=== PATIENT | male | born 1955 | race Caucasian/White ===

== ENCOUNTER → 2016-08-16 12:04 | Outpatient (CLI) | payer MEDICARE ==
[2011-11-28 08:53] VITALS: BMI 22.3
[~2016-08-16 12:04] MED LIST: ADDERALL 20 MG20 M1 PO; CORDARONE200 MG PO; ELIQUIS2.5 MG PO; HYDROCODONE-APA1 TAB PO; PERCOCET 10/3251 TA1 PO; VALIUM5 MG PO; XANAX0.5 MG PO
[2016-09-02 14:42] VITALS: BMI 26.9
== END | disposition home or self-care (01) ==
LOC: D.RAD 09:45
DX: M25.552 Pain in left hip (principal)

== ENCOUNTER → 2016-08-21 17:31 | Outpatient (CLI) | payer MEDICARE ==
[2011-11-28 08:53] VITALS: BMI 22.3
[2016-09-02 14:42] VITALS: BMI 26.9
== END | disposition home or self-care (01) ==
LOC: D.LABREF 17:31
DX: M16.12 Unilateral primary osteoarthritis, left hip (principal); Z11.8 Encounter for screening for other infectious and parasitic diseases

== ENCOUNTER 2016-08-29 09:00 | Inpatient (IN) | payer MEDICARE ==
[~2016-08-29] VITALS: Ht 185.4 cm; Wt 92.7 kg
[~2016-08-29 09:00] MED LIST changes: -ADDERALL 20 MG20 M1 PO; -ELIQUIS2.5 MG PO; -PERCOCET 10/3251 TA1 PO; -XANAX0.5 MG PO
[2016-08-29 09:21] LABS: HEMATOCRIT 37.5 % (42.0-54.0); HEMOGLOBIN 12.1 g/dL (13.5-17.5); LYMPHOCYTES 45.2 % (15-50); MCH 28.1 pg (26.0-34.0); MCHC 32.3 g/dL (31.0-37.0); MCV 87.2 fL (80.0-100.0); NEUTROPHILS 33.5 % (40-80); RDW 14.6 % (11.5-14.5); WBC 6.7 10x3/uL (4.8-10.8)
[2016-08-29 09:23] LABS: PLATELET COUNT 380 10x3/uL (130-400)
[2016-08-29 09:36] LABS: CALC OSMOLALITY 277 mosm/kg (275-300); CALCIUM 9.1 mg/dL (8.5-10.1); CARBON DIOXIDE 29.6 mmol/L (21.0-32.0); CHLORIDE - SERUM 99 mmol/L (98-107); CREATININE - SERUM 0.9 mg/dL (0.6-1.3); GLUCOSE 97 mg/dL (74-106); POTASSIUM - SERUM 4.2 mmol/L (3.5-5.1); SODIUM 138 mmol/L (136-145); UREA NITROGEN 19 mg/dL (7-18); eGFR NON AFRICAN AMERICAN > 90 mL/min (90-120)
[2016-08-29 09:52] LABS: APTT 37.7 SECONDS (22.8-39.4); INR 0.96 (0.85-1.17); PROTIME 12.6 SECONDS (11.6-15.0)
[2016-08-29 10:25] LABS: APPEARANCE HAZY (CLEAR); BILIRUBIN NEGATIVE (NEGATIVE); COLOR YELLOW (YELLOW); GLUCOSE NEGATIVE (NEGATIVE); KETONE NEGATIVE (NEGATIVE); LEUKOCYTE ESTERASE TRACE (NEGATIVE); NITRITE NEGATIVE (NEGATIVE); PROTEIN NEGATIVE (NEGATIVE); SPECIFIC GRAVITY 1.015 (1.005-1.020); UROBILINOGEN NORMAL (NORMAL)
[2016-08-29 10:26] LABS: RED CELLS - URINE RARE /hpf (0-5); WHITE CELLS - URINE 0-5 /hpf (0-5)
[2016-08-29 10:27] LABS: BACTERIA FEW /hpf (NONE SEEN); EPITHELIAL CELLS 0-5 /hpf (0-5); MUCUS >1+ /lpf (NONE SEEN); SPERMATOZOA PRESENT /hpf (NONE SEEN)
[2016-08-29] MEDS ORDERED: XANAX0.5 MG PO (13:47)
[2016-08-29] MEDS ORDERED: ADDERALL 20 MG20 M1 PO (13:49)
[2016-09-02] VITALS (9 sets, daily range): BP systolic 123–161; BP diastolic 66–91; Ht 185.4 cm; Wt 92.7 kg
--- NOTE | 2016-09-02 09:13 | NUR ---
0905 WARMING GOWN ON AND ATTACHED TO WARMER
--- NOTE | 2016-09-02 12:34 | NUR ---
WASHED LEFT HIP WITH HIBICLENS AND ALCOHOL PER WILLOW HENRIQUEZ RN PRIOR TO CHLORAPREP
--- NOTE | 2016-09-02 14:15 | NUR ---
PATIENT IS MOANING, VERBALIZING PAIN. HOLDING HIS BREATH. CLINCHING HIS FISTS. ADMINISTERED PERCOCET. WILL CONTINUE TO MONITOR.
--- NOTE | 2016-09-02 15:18 | NUR ---
PT RESTING QUIETLY WITH EYES CLOSED.
--- NOTE | 2016-09-02 17:08 | OP ---
PATIENT NAME: ISMAEL BRADFORD MEDICAL RECORD: [id number] :55 LOCATION:[id number] ADMISSION DATE:09/02/16 SURGEON: KANU MARQUEZ MD DATE OF OPERATION: 09/02/2016 PREOPERATIVE DIAGNOSIS: Degenerative arthritis of the left hip. POSTOPERATIVE DIAGNOSIS: Degenerative arthritis of the left hip. PROCEDURE: Left total hip arthroplasty. SURGEON: Kanu Marquez MD. ANESTHESIA: General. INTRAOPERATIVE COMPLICATIONS: None. SUMMARY OF PATHOLOGIC FINDINGS: The patient had end-stage osteoarthritis of the hip consistent with the preoperative diagnosis. IMPLANTS USED: Arsh Accolade II with a Tritanium cup size 4 stem, 36 standard head, size 54 shell alpha code E, 36 mm polyethylene, size 4 Accolade II TMZF coated femoral stem. ESTIMATED BLOOD LOSS: 300 cc. OPERATIVE SUMMARY IN DETAIL: After obtaining the appropriate preoperative orthopedic surgical consents as well as anesthetic consultation, evaluation and clearance, the patient was brought to the operating room and placed on the operating table in supine position. After general laryngeal mask was administered, he was placed in a right lateral decubitus position. All pressure points were well padded to include down leg peroneal pad as well as axillary roll. He was held firmly to the operating table using the vacuum pack suction system. Left lower extremity and hip were then prepped and draped in a routine sterile fashion. Curvilinear incision was made, taken down to the level of the IT band, which was split in line with fibers of the IT band to reveal the gluteus medius and minimus. These were reflected anteriorly. The hip capsule was split in a T-type fashion. The hip was dislocated and femoral neck cut was made. Serial and sequential reaming was done for a size 54 cluster hole cup, which was put into place with good fit and fill. Polyethylene shell was tamped into place at this point and checked with Jodie. The proximal femur was then exposed. A serial and sequential reaming and broaching were done for a size 4 Accolade II one 32 stem. This was put into place. Trial was undertaken with the head standard, was thought to be the best for most leg length appropriateness. The head was tamped into place on the Hoff taper. The hip was reduced. X-rays were taken that showed good position and placement of all components. The wound was copiously irrigated at this multiple points. The capsule was closed with #2 Ethibond followed by reapproximation of the gluteus medius and minimus back to the greater trochanter in a transosseous fashion. Having completed this, the IT band was closed with #5 Ethibond. This was followed by #1 Vicryl, 2-0 Vicryl and skin kristopher. Sterile dressings were applied. The patient was awakened, taken to recovery in stable condition. All final needle and sponge counts were correct. TRANSINT:[id number] Voice Confirmation ID: [id number] DOCUMENT ID: [id number] OPERATIVE REPORT [id number] ISMAEL BRADFORD MD, KANU BURTON at 1708 CC: [id number] DICTATION DATE: 09/02/16 1255 EMAIL CAMPAIGN MANAGER: 09/02/16 1342 ADM IN [facility] [address] [id number]
--- NOTE | 2016-09-02 19:00 | NUR ---
PATIENT SUPINE IN BED. HOB 30 DEGREES. PATIENT IS MOANING AND STATING THAT PAIN IS A 10/10. IV TO RIGHT WRIST PATENT WITH NO REDNESS OR SWELLING. DRESSING TO LEFT HIP CDI. B/A ON. SRX2. BED LOW. CALL LIGHT WITHIN REACH.
--- NOTE | 2016-09-02 22:20 | NUR ---
REPOSITIONED PATIENT. APPLIED FRESH ICE TO HIP. PERCOCET GIVEN FOR BREAKTHROUGH PAIN.
[2016-09-03 01:00] VITALS: BP 139/66
[2016-09-03 05:00] VITALS: BP 145/77
[2016-09-03 06:03] LABS: HEMATOCRIT 32.3 % (42.0-54.0); HEMOGLOBIN 10.3 g/dL (13.5-17.5); MCH 27.4 pg (26.0-34.0); MCHC 31.9 g/dL (31.0-37.0); MCV 85.9 fL (80.0-100.0); MEAN PLATELET VOLUME 9.1 fL (7.4-10.4); RBC 3.76 10x6/uL (4.20-6.10); RDW 14.6 % (11.5-14.5); WBC 10.9 10x3/uL (4.8-10.8)
[2016-09-03 08:18] VITALS: BP 119/59
--- NOTE | 2016-09-03 09:30 | NUR ---
PATIENT LAYING ON HIS LEFT SIDE. RESTING QUIETLY WITH EYES CLOSED. NO SIGNS OF DISTRESS NOTED. BED IN LOWEST POSITION, CALL LIGHT IN REACH. BED RAILS UP X'S 2. BED ALARM ON.
--- NOTE | 2016-09-03 09:35 | NUR ---
PATIENT NOW AWAKE. MOVING AROUND IN THE BED.
--- NOTE | 2016-09-03 10:43 | NUR ---
* Is the patient Alert and Oriented? Yes 0 * How many steps to enter\exit or inside your home? 3 0 * PCP Dr. Sutton 0 * Pharm[facility] 0 * Preadmission Environment Home Alone 0 * ADLs Partial Dependent 0 * Partial ADLs (Assistance needed) Ambulation 0 * Equipment Back Brace Cane 0 * List name and contact numbers for known caregivers / representatives who currently or will assist patient after discharge: Son-in-Law Tarun - [phone] 0 * Additional services required to return to the preadmission environment? Yes 0 * Can the patient safely return to the preadmission environment? Yes 0 * Has this patient been hospitalized within the prior 30 days at any hospital? No 09/03/2016 10:44 DCP: Discharge Planning Patient Name: ISMAEL BRADFORD Admission Status: Elective Accout number: [id number] Admission Date: 09-02-2016 : 1955 Admission Diagnosis: Attending: FANI Current LOS: 1 Anticipated DC Date: 09-04-2016 Planned Disposition: Outpatient PT\OT Primary Insurance: [employer] [facility] Discharge Planning Comments: CM met with patient to assess dc plans/needs. Patient states he lives alone. He has been using a cane for mobility. He recently completed OP physical therapy with Urbano Cullen following back surgery. His son in law, Tarun, is flying in from [place] to stay with him for a week while he recovers. He will arrive at the hospital tomorrow afternoon. Patient requests PT appt. with Urbano Cullen for PT - Appt. 09/06 @ 0223. A rolling walker has been ordered through [employer] by MD office & will be delivered to the hospital prior to discharge. Anticipate dc tomorrow afternoon. CM will follow. Economic Geographer: Gila Samuels
--- NOTE | 2016-09-03 11:58 | NUR ---
PATIENT SITTING UP IN THE CHAIR. CHAIR ALARM ON. RESPIRATIONS ARE EVEN AND UNLABORED ON ROOM AIR. EMPTIED PATIENT'S URINAL. HANDED PATIENT HIS DENTURES. PATIENT DENIES FURTHER NEEDS. CALL LIGHT IN REACH.
[2016-09-03 12:01] VITALS: BP 104/51
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
[2016-09-03 14:59] VITALS: BP 112/47
--- NOTE | 2016-09-03 16:50 | NUR ---
PATIENT'S BED ALARM GOING OFF, WENT IN PATIENT'S ROOM. PATIENT SITTING UP ON THE SIDE OF THE BED. I STATED "PLEASE DO NOT GET UP BY YOURSELF." PATIENT STATED "I WON'T. I AM NOT ABLE TOO." I STATED "PLEASE DO NOT EVEN TRY. IF YOU NEED ANYTHING PUSH YOUR CALL LIGHT." PATIENT VERBALIZED UNDERSTANDING AND AGREED. FAMILY ENTERED THE ROOM.
[2016-09-03 21:00] VITALS: BP 112/60
[2016-09-04 01:00] VITALS: BP 132/58
--- NOTE | 2016-09-04 04:37 | NUR ---
EYES CLOSED RESPIRATIONS WITH EASE AND UNLABORED.
[2016-09-04 05:00] VITALS: BP 128/60
[2016-09-04 05:09] LABS: HEMATOCRIT 31.3 % (42.0-54.0); HEMOGLOBIN 10.1 g/dL (13.5-17.5); MCH 27.7 pg (26.0-34.0); MCHC 32.3 g/dL (31.0-37.0); MCV 85.8 fL (80.0-100.0); MEAN PLATELET VOLUME 8.9 fL (7.4-10.4); RBC 3.65 10x6/uL (4.20-6.10); RDW 14.8 % (11.5-14.5); WBC 8.4 10x3/uL (4.8-10.8)
--- NOTE | 2016-09-04 07:10 | NUR ---
PATIENT RECEIVED ALERT IN MID LYLES POSITION. RESPIRATIONS EVEN AND UNLABORED. SIDE RAILS UP X2. BED IN LOW POSITION. CALL LIGHT IN REACH.
[2016-09-04 08:03] VITALS: BP 129/62
--- NOTE | 2016-09-04 08:37 | NUR ---
PATIENT ALERT IN HIGH LYLES POSITION. RESPIRATIONS EVEN AND UNLABORED. SCHEDULED MEDICATION ADMINISTERED WELL PRN NORCO. SIDE RAILS UP X2. BED IN LOW POSITION. CALL LIGHT IN REACH.
--- NOTE | 2016-09-04 10:05 | NUR ---
SITTING UP IN CHAIR RESTING WITH EYES CLOSED. RESPIRATIONS EVEN AND UNLABORED. CALL LIGHT IN REACH.
--- NOTE | 2016-09-04 12:14 | NUR ---
SITTING UP IN CHAIR ALERT. NO SIGNS OF DISTRESS NOTED. C/O PAIN 02/03. 1 TAB PERCOCET ADMINISTERED. CALL LIGHT IN REACH.
[2016-09-04 12:36] VITALS: BP 121/58
--- NOTE | 2016-09-04 13:01 | NUR ---
09/04/2016 12:58 DCP: Discharge Planning Patient Name: ISMAEL BRADFORD Encounter No: [id number] : 1955 Primary Insurance: [facility] PFFS Anticipated DC Date: 09-04-2016 Planned Disposition: Outpatient PT\OT External Planned Provider: Urbano Cullen PT DCP follow-up note: DC order rec'd. Patient and family in agreement with discharge plan. No changes to plan. Rolling walker has been delivered to patient's room. No other needs identified or verbalized. Gila Samuels
[2016-09-04 16:02] VITALS: BP 125/72
--- NOTE | 2016-09-04 18:23 | NUR ---
PATIENT ALERT IN BED. C/O PAIN 02/03. 1 TAB PERCOCET PER PRN ORDER. DENIES FURTHER NEEDS. SIDE RAILS UP X2. BED IN LOW POSITION. CALL LIGHT IN REACH.
[2016-09-04 21:00] VITALS: BP 124/71
[2016-09-05 05:00] VITALS: BP 130/68
--- NOTE | 2016-09-05 07:20 | NUR ---
PATIENT RECEIVED IN MID LYLES POSITION RESTING WITH EYES CLOSED. RESPIRATIONS EVEN AND UNLABORED. SIDE RAILS UP X2. BED IN LOW POSITION. CALL LIGHT IN REACH.
[2016-09-05 07:44] VITALS: BP 134/68
[2016-09-05] MEDS ORDERED: ELIQUIS2.5 MG PO (07:58)
[2016-09-05] MEDS ORDERED: PERCOCET 10/3251 TA1 PO (07:58)
--- NOTE | 2016-09-05 08:30 | NUR ---
PATIENT ALERT IN BED. TOLERATING BREAKFAST WELL. SCHEDULED MEDICATION ADMINISTERED. DRESSING TO LEFT HIP CHANGED. 27 GORDO INTACT. NO REDNESS, INFLAMMATION OR DRAINAGE NOTED. CLEANED WITH IODINE AND COVERED WITH AQUACEL AG. SIDE RAILS UP X2. BED IN LOW POSITION. CALL LIGHT IN REACH.
--- NOTE | 2016-09-05 09:50 | NUR ---
IV D/C WITH CATH TIP INTACT. SITE COVERED WITH GAUZE AND BANDAID. D/C TEACHING AND WRITTEN PRESCRIPTION PROVIDED TO PATIENT. STATES UNDERSTANDING.
--- NOTE | 2016-09-05 10:00 | NUR ---
PATIENT D/C HOME. TRANSFERRED DOWNSTAIRS VIA WHEELCHAIR WITH VOLUNTEER
== END 2016-09-05 10:14 | disposition home or self-care (01) | DRG 470 ==
LOC: D.SDCHOLD 09-02 08:19 → D.MS 09-02 08:19 → D.SDCHOLD 09-02 09:00 → D.MS 09-02 11:51
PROVIDERS: ADMIT Orthopaedic Surgery
PROC: 0SRB0JZ Replacement of Left Hip Joint with Synthetic Substitute, Open Approach (ICD-10-PCS; principal; 2016-09-02 10:00)
DX: M16.12 Unilateral primary osteoarthritis, left hip (principal); D62 Acute posthemorrhagic anemia; F17.203 Nicotine dependence unspecified, with withdrawal; I25.10 Atherosclerotic heart disease of native coronary artery without angina pectoris; E78.5 Hyperlipidemia, unspecified; F41.9 Anxiety disorder, unspecified; G89.4 Chronic pain syndrome; M48.00 Spinal stenosis, site unspecified

== ENCOUNTER 2017-05-02 13:05 | Inpatient (IN) | payer MEDICARE ==
[~2017-05-02] VITALS: Ht 185.4 cm; Wt 87.5 kg
--- NOTE | ~2017-05-02 | DS ---
PATIENT:ISMAEL BRADFORD :55 MEDICAL RECORD: [id number] DISCHARGE SUMMARY ADMISSION DATE: 05/02/17 DISCHARGE DATE: 05/05/17 DISCHARGE DIAGNOSES: Spinal cord injury, C5-C7 and C1-C4; history of coronary artery disease; osteoarthritis. CONSULTS: Balwinder Gaffney MD SURGICAL PROCEDURE: ACDF at C3-C4 and C4-C5. HOSPITAL COURSE: A 62-year-old man who is admitted after complaints of fairly abrupt onset of pain and numbness in his upper arms and hands. Symptoms have been going on for about 3 weeks and became much worse, left greater than right. He cannot button his shirt or operate his fishing boat. He had weakness in the left lower extremity, had multiple falls. He was admitted by Dr. 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 MRI showed C3-C4 osteophyte herniated nucleus pulposus with spinal cord compression and edema and C4-C5 severe canal stenosis secondary to osteophyte. He placed on IV Decadron, seen in consult by Dr. Gaffney and procedure performed as above. Postoperatively, the patient had recovered fairly quickly in regards to his pain. He was discharged by neurosurgery on postop day 1 in improved condition. DISCHARGE MEDICATIONS: Xanax 0.5 mg q.12 hours p.r.n. anxiety, Percocet 10/325 one q.6 hours for pain, and Adderall 20 mg b.i.d. DIET: Regular. ACTIVITY: Progress as tolerated. FOLLOWUP: With Dr. Gaffney in 1 week and mi in 2 weeks. TRANSINT:[id number] Voice Confirmation ID: [id number] DOCUMENT ID: [id number] VIJAY EAST MD CC: [id number] DICTATION DATE: 09/05/17 1324 JOB SITE SUPERINTENDENT: 09/05/17 1349 DIS IN 05/05/[id number] [place] [address]
[~2017-05-02 13:05] MED LIST changes: +ADDERALL 20 MG20 M1 PO; +ELIQUIS2.5 MG PO; +PERCOCET 10/3251 TA1 PO; +XANAX0.5 MG PO
--- NOTE | 2017-05-02 16:30 | NUR ---
RECEIVED TO ROOM 2236 FROM RADIOLOGY VIA . SITED TO R HAND WITH 22 GUAGE X 2 ATTEMPTS BY JOANNA DUNLAP RN. COMPLAINING OF WEAKNESS TO BILAT ARMS. REPORTS HE HAS BEEN DROPPING OBJECTS SUCH A HAMBURGER EARLIER. COMPLAINING OF BURNING SENSATION TO L SIDE OF FOOT. COMPLAINING OF PAIN TO TOP OF L KNEE. MULTIPLE SCABBED AREAS NOTED TO BLE.
[2017-05-02 16:50] VITALS: BP 132/67; Ht 185.4 cm; Wt 87.5 kg
[2017-05-02 17:41] LABS: BASOPHILS 0.3 % (0-2); EOSINOPHILS 2.1 % (0-7); HEMOGLOBIN 14.3 g/dL (13.5-17.5); IMMATURE GRANULOCYTES 0.1 % (0-5); MCH 30.1 pg (26.0-34.0); MCV 88.4 fL (80.0-100.0); MONOCYTES 7.7 % (2-11); NEUTROPHILS 55.8 % (40-80); PLATELET COUNT 263 10x3/uL (130-400); RBC 4.75 10x6/uL (4.20-6.10); RDW 14.7 % (11.5-14.5); WBC 7.1 10x3/uL (4.8-10.8)
[2017-05-02 17:50] LABS: CALC OSMOLALITY 277 mosm/kg (275-300); CALCIUM 8.8 mg/dL (8.5-10.1); CARBON DIOXIDE 29.8 mmol/L (21.0-32.0); CHLORIDE - SERUM 101 mmol/L (98-107); CREATININE - SERUM 0.9 mg/dL (0.6-1.3); GLUCOSE 115 mg/dL (74-106); POTASSIUM - SERUM 3.6 mmol/L (3.5-5.1); SODIUM 138 mmol/L (136-145); UREA NITROGEN 15 mg/dL (7-18); eGFR NON AFRICAN AMERICAN > 90 mL/min (90-120)
[2017-05-02 20:00] VITALS: BP 132/72
--- NOTE | 2017-05-02 20:59 | NUR ---
AWAKE,ALERT. NO COMPLAINTS VOICED. SL TO RIGHT HAND INTACT WITHOUT REDNESS OR EDEMA NOTED. LEMUS. CL IN REACH.
[2017-05-03] VITALS: BP 141/70
--- NOTE | 2017-05-03 01:30 | NUR ---
RN NOTE: PT SITTING UP IN HIGH LYLES'S POSITION READING. NO NEEDS VOICED AT THIS TIME. DISCUSSED ALL THE MEDICAL PROBLEMS PT HAS HAD OVER PAST YEAR. WILL CONTINUE TO MONITOR FOR NEEDS. CALL LIGHT WITHIN REACH.
[2017-05-03 03:42] VITALS: BP 119/71
[2017-05-03 04:00] VITALS: BP 136/69
--- NOTE | 2017-05-03 04:32 | NUR ---
RESTING QUIETLY. NO DISTRESS NOTED. CL IN REACH.
[2017-05-03 06:16] LABS: BASOPHILS 0 % (0-2); EOSINOPHILS 0 % (0-7); HEMATOCRIT 40.4 % (42.0-54.0); HEMOGLOBIN 13.8 g/dL (13.5-17.5); IMMATURE GRANULOCYTES 0.1 % (0-5); LYMPHOCYTES 18.1 % (15-50); MCH 29.9 pg (26.0-34.0); MCHC 34.2 g/dL (31.0-37.0); MCV 87.4 fL (80.0-100.0); MEAN PLATELET VOLUME 9.1 fL (7.4-10.4); MONOCYTES 0.6 % (2-11); NEUTROPHILS 81.2 % (40-80); PLATELET COUNT 257 10x3/uL (130-400); RBC 4.62 10x6/uL (4.20-6.10); RDW 14.5 % (11.5-14.5); WBC 6.7 10x3/uL (4.8-10.8)
[2017-05-03 06:44] LABS: CALC OSMOLALITY 276 mosm/kg (275-300); CALCIUM 8.8 mg/dL (8.5-10.1); CHLORIDE - SERUM 100 mmol/L (98-107); CREATININE - SERUM 0.8 mg/dL (0.6-1.3); GLUCOSE 162 mg/dL (74-106); POTASSIUM - SERUM 3.8 mmol/L (3.5-5.1); SODIUM 136 mmol/L (136-145); UREA NITROGEN 16 mg/dL (7-18); eGFR NON AFRICAN AMERICAN > 90 mL/min (90-120)
--- NOTE | 2017-05-03 08:15 | NUR ---
ASSESSMENT COMPLETE. SL TO R HAND. COMPLAINING OF NUMBNESS AND WEAKNESS TO BILAT ARMS AND HANDS. ABLE TO FEED SELF. DENIES ANY NEEDS AT THIS TIME.
[2017-05-03 08:45] VITALS: BP 154/76
[2017-05-03 11:07] VITALS: BP 136/65
--- NOTE | 2017-05-03 12:00 | NUR ---
REFUSING TO WEAR SCD'S AT THIS TIME. STATES HE WILL WEAR THEM TONIGHT.
--- NOTE | 2017-05-03 14:00 | NUR ---
MORPHINE GIVEN SLOW IVP FOR COMPLAINT OF BACK AND NECK PAIN.
--- NOTE | 2017-05-03 17:24 | NUR ---
CONTINUES TO COMPLAIN OF PAIN. NORCO GIVEN. INSTRUCTED NOT TO EAT OR DRINK AFTER MIDNIGHT. VOICED UNDERSTANDING.
[2017-05-03 20:00] VITALS: BP 132/74
--- NOTE | 2017-05-03 20:10 | NUR ---
REC'D IN BED AWAKE ALERT. RESP EVEN AND UNLABORED WITH NO DISTRESS NOTED. CAN EXPRESS NEEDS AND WANTS. C/OPAIN RATING 5/10 ON PAIN SCALE. ASSESSMENT COMPLETED. AT BEDSIDE. C/L IN REACH.
--- NOTE | 2017-05-03 21:54 | NUR ---
WAS MEDICATED WITH MORPHINE 4 MG FOR C/O PAIN RATING 7/10 ON PAIN SCALE
[2017-05-04] VITALS (15 sets, daily range): BP systolic 90–149; BP diastolic 53–86
--- NOTE | 2017-05-04 03:20 | NUR ---
PT C/O NECK PAIN 03/06. GAVE ICE PACK AND MORPHINE 4 MG IV PUSH. NO OTHER NEEDS. CONTINUE PADDED PRODUCTS FINISHER'S PLAN OF CARE.
[2017-05-04 07:15] LABS: BASOPHILS 0 % (0-2); EOSINOPHILS 0.1 % (0-7); HEMATOCRIT 41.2 % (42.0-54.0); HEMOGLOBIN 13.9 g/dL (13.5-17.5); IMMATURE GRANULOCYTES 0.2 % (0-5); LYMPHOCYTES 10.9 % (15-50); MCH 29.4 pg (26.0-34.0); MCHC 33.7 g/dL (31.0-37.0); MCV 87.1 fL (80.0-100.0); MEAN PLATELET VOLUME 9.3 fL (7.4-10.4); MONOCYTES 3.4 % (2-11); NEUTROPHILS 85.4 % (40-80); PLATELET COUNT 288 10x3/uL (130-400); RBC 4.73 10x6/uL (4.20-6.10); RDW 14.7 % (11.5-14.5)
[2017-05-04 07:18] LABS: WBC 12.2 10x3/uL (4.8-10.8)
[2017-05-04 07:21] LABS: CALC OSMOLALITY 284 mosm/kg (275-300); CALCIUM 9.1 mg/dL (8.5-10.1); CARBON DIOXIDE 24.9 mmol/L (21.0-32.0); CHLORIDE - SERUM 105 mmol/L (98-107); CREATININE - SERUM 0.7 mg/dL (0.6-1.3); GLUCOSE 118 mg/dL (74-106); SODIUM 142 mmol/L (136-145); UREA NITROGEN 15 mg/dL (7-18); eGFR NON AFRICAN AMERICAN > 90 mL/min (90-120)
--- NOTE | 2017-05-04 07:31 | NUR ---
PATIENT RESTING QUIETLY IN THE BED. PATIENT AWAKENS EASILY TO VERBAL STIMULI. PATIENT IS AWAKE, ALERT, AND ORIENTED X4. PATIENT IS NPO. PEPCID 20 MG IV AND REGLAN 10 MG IV GIVEN FOR PATIENT'S PREOP MEDICATIONS. PATIENT TOLERATED WELL. RESPIRATORY THERAPIST IN THE ROOM TO DO AN EKG. ANESTHESIOLOGIST IN THE ROOM TO ASK PATIENT PREOP QUESTIONS. CALL LIGHT IN PATIENT'S REACH. WILL MONITOR PATIENT.
--- NOTE | 2017-05-04 12:24 | NUR ---
DENA TORRES APN NOT PAGED PER ORDER DUE TO NOT BEING ON DR. SOTO'S SERVICE ANY LONGER.
--- NOTE | 2017-05-04 17:22 | NUR ---
ASSISTED PT TO BEDSIDE COMMODE. SOFT C-COLLAR IN PLACE.
--- NOTE | 2017-05-04 19:00 | NUR ---
REPORT RECIEVED, SHIFT ASSESSMENT COMPLETE, PT IS ALERT AND ORIENTED, ON RA WITH 98% O2 SAT. LUNGS CLEAR IN ALL LOBES, S1S2, CM-NSR, INCISION TO NECK, SOFT COLLAR IN PLACE, PATENT RIGHT HAND PIV WITH NS INFUSING VIA PUMP, ABDOMEN IS SOFT AND FLAT WITH ACTIVE BS, URINAL AT BEDSIDE, ALL PPP, VSS, CALL LIGHT IN REACH
--- NOTE | 2017-05-04 21:00 | NUR ---
NO VISITORS AT THIS TIME, WILL CON'T TO MONITOR
--- NOTE | 2017-05-04 23:07 | NUR ---
REASSESSMENT COMPLETE, NO CHANGES NOTED, PT AWAKE AT THIS TIME, DENEIS ANY NEEDS, WILL CON'T TO MONITOR
[2017-05-05] VITALS (9 sets, daily range): BP systolic 119–153; BP diastolic 48–86
--- NOTE | 2017-05-05 01:15 | NUR ---
PT RESTING WITH EYES CLOSED, WILL CON'T TO MONITOR
--- NOTE | 2017-05-05 03:15 | NUR ---
REASSESSMENT COMPLETE, NO CHANGES NOTED, PT RESTING AT THIS TIME, WILL CON'T TO MONITOR
[2017-05-05 04:10] LABS: BASOPHILS 0 % (0-2); EOSINOPHILS 0 % (0-7); HEMATOCRIT 40.8 % (42.0-54.0); HEMOGLOBIN 13.6 g/dL (13.5-17.5); IMMATURE GRANULOCYTES 0.2 % (0-5); LYMPHOCYTES 9.7 % (15-50); MCH 29.5 pg (26.0-34.0); MCHC 33.3 g/dL (31.0-37.0); MCV 88.5 fL (80.0-100.0); MEAN PLATELET VOLUME 9.4 fL (7.4-10.4); MONOCYTES 4.2 % (2-11); NEUTROPHILS 85.9 % (40-80); PLATELET COUNT 289 10x3/uL (130-400); RBC 4.61 10x6/uL (4.20-6.10); WBC 12.3 10x3/uL (4.8-10.8)
[2017-05-05 04:19] LABS: CALC OSMOLALITY 283 mosm/kg (275-300); CALCIUM 8.7 mg/dL (8.5-10.1); CARBON DIOXIDE 29.9 mmol/L (21.0-32.0); CHLORIDE - SERUM 105 mmol/L (98-107); CREATININE - SERUM 0.8 mg/dL (0.6-1.3); GLUCOSE 123 mg/dL (74-106); POTASSIUM - SERUM 4.1 mmol/L (3.5-5.1); SODIUM 141 mmol/L (136-145); UREA NITROGEN 18 mg/dL (7-18); eGFR NON AFRICAN AMERICAN > 90 mL/min (90-120)
--- NOTE | 2017-05-05 05:00 | NUR ---
PT AWAKE AT THIS TIME, DENIES ANY NEEDS, WILL CON'T TO MONITOR
--- NOTE | 2017-05-05 07:30 | NUR ---
RECEIVED PT FOR CARE. PT RESTING IN BED WITH EYES OPEN. CALL LIGHT WITHIN REACH. ASSESSMENT COMPLETED.
--- NOTE | 2017-05-05 08:35 | NUR ---
DR. SOTO AT BEDSIDE. UPDATED ON PT'S STATUS. ORDERS TO D/C HOME.
[2017-05-05] MEDS ORDERED: PERCOCET 10/3251 TA1 PO (09:48)
--- NOTE | 2017-05-05 09:53 | NUR ---
RIGHT HAND PIV D/C'D WTIH CATH TIP INTACT. PT TOLERATED WELL. DISCUSSED DISCHARGE INSTRUCTIONS WITH PT. HE VOICED UNDERSTANDING. PT REPORTS HE HAS ALL BELONGINGS EXCEPT FOR PHONE WRINGER AND SETTER. HE STATES HE HAD IT IN HIS ROOM WHEN HE WAS ON MED/SURG YESTERDAY. CHA DEE RN NIGHT NURSE REPORTS THAT SHE CHECKED HIS MED/SURG ROOM LAST NIGHT AND ASKED AROUND AND NOONE HAS SEEN IT.
--- NOTE | 2017-05-05 10:04 | NUR ---
PT WAITING ON RIDE FOR MANUFACTURING PROCESS ENGINEER.
--- NOTE | 2017-05-05 10:07 | NUR ---
MALACHI WITH CASE MANAGEMENT CALLED AND REPORTS THAT HE ATTEMPTED TO LOCATE PHONE TITLE ABSTRACTOR AND WAS UNABLE TO.
--- NOTE | 2017-05-05 10:35 | NUR ---
PT TAKEN DOWN BY WHEELCHAIR. NO S/S OF DISTRESS NOTED. ALL DISCHARGE PAPERWORK IN HAND AND PRESCRIPTION FOR PERCOCET FROM DR. SOTO.
--- NOTE | 2017-05-05 16:00 | NUR ---
Patient Name: ISMAEL BRADFORD Admission Status: Elective Accout number: [id number] Admission Date: 05-02-2017 : 1955 Admission Diagnosis: Attending: VIJAY EAST Current LOS: 3 Anticipated DC Date: 05-05-2017 Planned Disposition: Home Primary Insurance: [facility] [employer] [facility] LATE ENTRY: Discharge Planning Comments: * Is the patient Alert and Oriented? Yes 0 * How many steps to enter\exit or inside your home? 2 W/RAILS 0 * PCP DR. EAST 0 * [facility] 0 * Preadmission Environment Home Alone 0 * ADLs Independent 0 * Equipment Bedside Commode Cane Walker 0 * Other Equipment NO MEDICAL EQUIPMENT PROVIDER PREFERENCE 0 * List name and contact numbers for known caregivers / representatives who currently or will assist patient after discharge: MAXIMINO GAITAN, SON IN LAW, AZAEL GAITAN, DTR, 0 * Community resources currently utilized None 0 * Please name any agencies selected above. NONE 0 * Additional services required to return to the preadmission environment? No 0 * Can the patient safely return to the preadmission environment? Yes 0 * Has this patient been hospitalized within the prior 30 days at any hospital? No 0 CM MET WITH PT IN ROOM TO DISCUSS DISCHARGE PLANNING AND NEEDS. PT REPORTS LIVING AT HOME INDEPENDENTLY AND ALONE. PT HAS WALKERS, BEDSIDE COMMODE AND CANE WITH NO MEDICAL EQUIPMENT PROVIDER PREFERENCE AND NO OUTSIDE SERVICES ASSISTING IN THE HOME. CM DISCUSSED AVAILABILITY OF HOME HEALTH, REHAB SERVICES AND MEDICAL EQUIPMENT. PT DENIES DISCHARGE NEEDS, REPORTS A FRIEND WILL PICK HIM UP FOR DISCHARGE HOME. IMPORTANT MESSAGE FROM MEDICARE PROVIDED AND EXPLAINED. Magnaflux Operator: Isaias Condon
--- NOTE | 2017-05-17 08:40 | OP ---
PATIENT NAME: ISMAEL BRADFORD MEDICAL RECORD: [id number] :55 LOCATION:[facility] D.2301 ADMISSION DATE:05/02/17 SURGEON: ARMIN SOTO MD DATE OF OPERATION: 05/04/2017 PREOPERATIVE DIAGNOSIS: Spinal cord injury at C3-C4 and C4-C5 secondary to spinal cord compression from osteophytes and disc herniations at both levels. PROCEDURE: Anterior cervical discectomy and fusion with removal of osteophytes, decompression of spinal cord, anterior cervical plate and screws using a VIP anterior cervical plate from the [employer] and [place] PEEK interbody spacer, ViaCell bone stem cells as allograft. DESCRIPTION AND TECHNIQUE: After induction of general endotracheal anesthesia, the patient was positioned supine on the operating table. Neck was prepped and draped in usual sterile fashion. Fluoroscopic x-ray and freer localized the C4 vertebral body. A transverse skin incision was carried out from the sternocleidomastoid to the midline. The platysma muscle was divided with Bovie cautery. Using blunt and sharp dissection with Metzenbaum scissors, I proceeded in avascular plane medial to the carotid sheath. The C3-C4 and C4-C5 interspaces were confirmed with fluoroscopic x-ray and a spinal needle. The longus colli muscles were elevated from bodies of C3, C4, and C5. A self-retaining retractor was placed deep to the longus colli muscles. Davenport distracting pins were placed by the C3, C4, and C5. Each disc space was incised with #11 blade at C3-C4 and C4-C5. The disc material was removed and osteophytes were drilled away posteriorly with Midas-Gagan drill. Posterior longitudinal ligament was removed with Cloward rongeurs. Following this, the dura was decompressed well at both levels. A PEEK interbody cage was placed at both levels under fluoroscopic control. Prior to this, it was filled with ViaCell allograft. Prior to placing the PEEK interbody cages, the end plates were repaired with curettes. A VIP anterior cervical plate was used to span C3, C4, and C5 vertebral bodies. The 18-mm screws were placed in the body of the C3 and C5 and 60-mm screws placed in body of C4. The locking cams were tightened down over the screw heads. Meticulous hemostasis was maintained throughout the wound. Wound was irrigated with copious amounts of Ancef irrigant solution. The good position of the hardware was confirmed on fluoroscopic x-ray. The platysma and subdermal layer were closed with interrupted 3-0 Vicryl suture. Skin was reapproximated with Steri-Strips and benzoin. A sterile dressing was applied to the wound. The patient was awakened in good condition and taken to recovery. All counts were reported as correct. Estimated blood loss was minimal. TRANSINT:[id number] Voice Confirmation ID: [id number] DOCUMENT ID: [id number] ARMIN SOTO MD at 0840 CC: [id number] DICTATION DATE: 05/15/17 0849 EDI MANAGER: 05/15/17 1208 DIS IN 05/05/17 [id number] [place] [address]
== END 2017-05-05 10:35 | disposition home or self-care (01) | DRG 473 ==
LOC: D.MRI 13:05 → D.MS 16:14 → D.ICU 16:14
PROVIDERS: Neurological Surgery; ADMIT Family Medicine
PROC: 0RB30ZZ Excision of Cervical Vertebral Disc, Open Approach (ICD-10-PCS; 2017-05-04)
PROC: 0RG20A0 Fusion of 2 or more Cervical Vertebral Joints with Interbody Fusion Device, Anterior Approach, Anterior Column, Open Approach (ICD-10-PCS; principal; 2017-05-04 08:00)
PROC: 0RG20K0 Fusion of 2 or more Cervical Vertebral Joints with Nonautologous Tissue Substitute, Anterior Approach, Anterior Column, Open Approach (ICD-10-PCS; 2017-05-04 08:00)
DX: M50.21 Other cervical disc displacement, high cervical region (principal); M25.78 Osteophyte, vertebrae; M48.02 Spinal stenosis, cervical region; I25.10 Atherosclerotic heart disease of native coronary artery without angina pectoris; F17.200 Nicotine dependence, unspecified, uncomplicated; Z95.1 Presence of aortocoronary bypass graft; Z91.81 History of falling

== ENCOUNTER → 2017-05-30 16:00 | Outpatient (CLI) | payer MEDICARE ==
[2017-05-02 16:50] VITALS: BMI 25.7
== END | disposition home or self-care (01) ==
LOC: D.MRI 16:00
DX: M54.12 Radiculopathy, cervical region (principal); S14.109A Unspecified injury at unspecified level of cervical spinal cord, initial encounter; X58.XXXA Exposure to other specified factors, initial encounter; Y93.89 Activity, other specified; Y92.029 Unspecified place in mobile home as the place of occurrence of the external cause

== ENCOUNTER → 2017-06-06 14:29 | Outpatient (CLI) | payer MEDICARE ==
[2017-05-02 16:50] VITALS: BMI 25.7
== END | disposition home or self-care (01) ==
LOC: D.CT 06-04 15:30
DX: S09.90XA Unspecified injury of head, initial encounter (principal)

== ENCOUNTER → 2018-05-22 15:50 | Outpatient (CLI) | payer MEDICARE ==
[2017-05-02 16:50] VITALS: BMI 25.7
== END | disposition home or self-care (01) ==
LOC: D.MRI 15:50
DX: G95.9 Disease of spinal cord, unspecified (principal)

== ENCOUNTER 2018-09-13 20:41 | Observation (INO) | payer MEDICARE ==
[~2018-09-13] VITALS: Ht 185.4 cm; Wt 101.7 kg
--- NOTE | ~2018-09-13 | HEMODYNAMI ---
PATIENT:ISMAEL BRADFORD MEDICAL RECORD: [id number] : 55 LOCATION:[facility].2103 ADMISSION DATE: 09/13/18 Generatedon:09/14/201815:20 Patient name: ISMAEL BRADFORD Patient #: [id number] SSN: DO B: 1955 Date of study: 09/14/2018 Page: Of Hemodynamic Procedure Report Patient Data Patient Demographics Procedure consent was obtained First Name: ISMAEL Gender: Male Last Name: SUZETTE : 1955 Middle Initial: L Age: 63 year(s) Patient #: [id number] Race: Unknown Additional ID: [id number] Contact details Address: [address] [place] [address] [facility] State: [place] City: [place] Zip code: [address] Past Medical History Allergies Allergen Reaction Date Comments Reported Other allergy 09/14/2018 [facility] Admission Admission Data Admission Date: 09/13/2018 Admission Time: 22:28 Room #: 2103 Procedure Procedure Types Cath Procedure Diagnostic Procedure LHC LHC w/Coronaries w/Grafts Aortic Root Angiography Sedation Charges Moderate Sedation up to 30 minutes PCI Procedure Coronary Stent Coronary Stent Initial Procedure Description Procedure Date Procedure Date: 09/14/2018 Procedure Start Time: 14:33 Procedure End Time: 15:18 Procedure Staff Name Function Lexy Sanchez RT Monitor Vahe Rolon RT Drilling Supervisor Tra Dan RN Nurse Marielena Butcher RT Scrub Mya Anderson RT Scrub Yash Gagnon MD Performing Physician Sarah Duenas RT Monitor Procedure Data Cath Procedure Fluoroscopy Diagnostic fluoroscopy Total fluoroscopy Time: time: 12.3 min 12.3 min Diagnostic fluoroscopy Total fluoroscopy dose: dose: 1889 mGy 1889 mGy Contrast Material Contrast Material Type Amount (ml) Isovue 300 312 Entry Location Entry Primary Successful Side Size Upsize Upsize Entry Closure Succes sful Closure Location (Fr) 1 (Fr) 2 (Fr) Remarks Device Remarks Femoral Right 5 Fr 6 Fr Exoseal artery Short Estimated blood loss: 10 ml Diagnostic catheters Device Type Used For End Catheter Placement MULTIPACK JL 4.0 5Fr Left Coronary catheter Angiography MULTIPACK 3DRC 5Fr Right Coronary catheter Angiography MULTIPACK Pigtail 5 Fr LV Angiography catheter MULTIPACK Pigtail 5 Fr Aortic Root catheter Angiography DIAGNOSTIC AR MOD 5Fr SVG Angiography Catheter ([id number]) DIAGNOSTIC MPA-2 5Fr Procedure catheter ([id number]) MULTIPACK JL 4.0 5Fr Procedure catheter MULTIPACK Pigtail 5 Fr Procedure catheter Procedure Complications No complications Procedure Medications Medication Administration Route Dosage Oxygen etCO2 Nasal cannula 2 l/min Heparin Flush Bag added to field 2 bags (1000units/500ml NS) 0.9% NaCl I.V. 100 ml/hr Lidocaine 2% added to field 20 Fentanyl I.V. 50 mcg Versed I.V. 1 mg Fentanyl I.V. 50 mcg Versed I.V. 1 mg Fentanyl I.V. 50 mcg Versed I.V. 1 mg Fentanyl I.V. 50 mcg Fentanyl I.V. 50 mcg Versed I.V. 1 mg Versed I.V. 1 mg Heparin Bolus I.V. 5000 units Integrilin (Bolus I.V. 9 ml 2mg/ml) Integrilin (Bolus wasted 1 ml 2mg/ml) Fentanyl I.V. 50 mcg Versed I.V. 1 mg Plavix P.O. 600 mg Hemodynamics Rest Heart Rate: 69 (bpm) Pressure Samples Time Site Value (mmHg) Purpose Heart Use Rate(bpm) 14:41 LV 96/7,8 EDP 77 14:42 AO 99/62(77) Pullback 74 14:42 LV 89/14,19 Pullback 74 Gradients Valve Time Site 1 Site 2 Mean SEP/DFP Peak To Heart Use (mmHg) (sec/min) Peak Rate (mmHg) (bpm) Aortic 14:42 LV AO 0 9 0 74 89/14,19 99/62(77) Calculations Valve P-P Mean Valve Index Valve Source Name Gradient Area Flow (cm2) Aortic 0 0 0 0 Snapshots Pre Cath Intra NCS Post Cath Vital Signs Time Heart Resp SPO2 etCO2 NIBP (mmHg) Rhythm Pain Sedation Rate (ipm) (%) (mmHg) Status Level (bpm) 13:39:30 65 16 99 0 159/104(127) NSR 0 (11) 10(A) , No pain 13:44:33 71 17 99 0 146/91(122) NSR 0 (11) 10(A) , No pain 13:48:54 74 17 96 0 136/81(99) NSR 0 (11) 10(A) , No pain 13:53:12 72 16 95 0 122/75(99) NSR 0 (11) 10(A) , No pain 13:57:24 69 16 94 0 116/72(81) NSR 0 (11) 10(A) , No pain 14:01:25 71 17 95 0 107/66(79) NSR 0 () 10(A) , No pain 14:05:33 70 17 95 0 115/68(82) NSR 0 (11) 10(A) , No pain 14:09:43 70 16 95 0 110/70(84) NSR 0 () 10(A) , No pain 14:13:51 72 16 95 0 115/77(92) NSR 0 () 10(A) , No pain 14:18:05 72 17 94 0 92/61(74) NSR 0 () 10(A) , No pain 14:22:11 71 17 94 0 95/57(74) NSR 0 () 10(A) , No pain 14:26:16 71 17 94 0 89/59(83) NSR 0 () 10(A) , No pain 14:30:22 73 17 94 0 99/58(93) NSR 0 () 10(A) , No pain 14:34:30 76 16 94 0 103/65(81) NSR 0 () 10(A) , No pain 14:38:36 74 17 95 0 109/69(89) NSR 0 (11) 9(A) , No pain 14:42:46 71 16 94 0 91/66(84) NSR 0 (11) 9(A) , No pain 14:47:22 75 17 95 0 100/60(83) NSR 0 (11) 9(A) , No pain 14:51:30 74 16 96 0 113/63(87) NSR 0 (11) 9(A) , No pain 14:55:36 74 16 95 0 93/53(87) NSR 0 (11) 9(A) , No pain 14:59:42 79 16 94 0 91/57(68) NSR 0 (11) 9(A) , No pain 15:03:45 77 16 96 0 97/62(75) NSR 0 (11) 9(A) , No pain 15:07:47 77 17 95 0 115/77(87) NSR 0 (11) 9(A) , No pain 15:11:57 75 16 96 0 119/74(94) NSR 0 (11) 10(A) , No pain 15:16:03 79 17 96 0 113/83(93) NSR 0 (11) 10(A) , No pain 15:18:22 72 16 97 0 127/80(110) NSR 0 (11) 10(A) , No pain Medications Time Medication Route Dose Verified Delivered Reason Notes Effectiveness by by 13:40:40 Oxygen etCO2 2 Leonadr Tra Per physician Nasal l/min Sami Dan RN cannula 13:40:49 Heparin Flush added 2 Leonard Tra used for Bag to bags Sami Dan RN procedure (1000units/500ml field NS) 13:40:57 0.9% NaCl I.V. 100 Leonard Tra Per physician ml/hr Sami Dan RN 13:41:11 Lidocaine 2% added 20ml Leonard Tra used for to vial Sami Dan RN procedure field 14:30:15 Fentanyl I.V. 50 Yash Tra for sedation [facility] Balwinder Dan RN, MD 14:30:25 Versed I.V. 1 mg Yash Tra for sedation St Balwinder Dan RN, MD 14:35:25 Fentanyl I.V. 50 Yash Tra for sedation [facility] [place] Balwinder Dan RN, MD 14:35:28 Versed I.V. 1 mg Yash Tra for sedation St Balwinder Dan RN, MD 14:37:32 Fentanyl I.V. 50 Yash Tra for sedation [facility] Balwinder Dan RN, MD 14:37:37 Versed I.V. 1 mg Yash Tra for sedation St Balwinder Dan RN, MD 14:40:12 Fentanyl I.V. 50 Yash Tra for sedation [facility] [place] Balwinder Dan RN, MD 14:42:08 Fentanyl I.V. 50 Yash Tra for sedation [facility] [place] Balwinder Dan RN, MD 14:49:03 Versed I.V. 1 mg Yash Tra for sedation St Balwinder Dan RN, MD 14:53:02 Versed I.V. 1 mg Yash [place] for sedation St Balwinder Dan RN, MD 14:53:15 Heparin Bolus I.V. 5000 Y[address] [place] for units [facility] Balwinder Dan RN anticoagulation 14:53:24 Integrilin I.V. 9 ml Yash Dutta for (Bolus 2mg/ml) St Balwinder Dna RN antiplatelet MD therapy 14:53:30 Integrilin wasted 1 ml Yash Dutta for (Bolus 2mg/ml) St Balwinder Dan RN antiplatelet MD therapy 14:54:52 Fentanyl I.V. 50 Yash [place] for sedation mcg [facility] Balwinder Dan RN, MD 14:54:57 Versed I.V. 1 mg Yash [place] for sedation St Balwinder Dan RN, MD 15:16:40 Plavix P.O. 600 Y[address] [place] for mg [facility] Balwinder Dan RN antiplatelet MD therapy Procedure Log Time Note 13:20:15 Vahe Rolon RT(R) sent for patient. Start room use. 13:20:16 Time tracking: Regular hours (M-F 7:00 - 5:00) 13:20:20 Plan of Care:Hemodynamics will remain stable., Cardiac rhythm will remain stable., Comfort level will be maintained., Respiratory function will remain adequate., Patient/ family verbilizes understanding of procedure., Procedure tolerated without complication., Recovers from procedure without complications.. 13:34:24 Patient received from PCU to CCL 1 Alert and oriented. Tansferred to table in Supine position. 13:34:25 Warm blankets applied, and bekah hugger turned on for patient comfort. 13:34:26 Correct patient and procedure confirmed by team. 13:34:27 Signed procedure consent form obtained from patient. 13:34:28 ECG and BP/O2 sat monitors applied to patient. 13:34:29 Full Disclosure recording started 13:38:04 H&P Date Dictated: 09/14/2018 Within 30 days and on chart.. 13:38:05 Pre-procedure instructions explained to patient. 13:38:06 Pre-op teaching completed and patient verbalized understanding. 13:38:08 Family in patients room. 13:38:09 Patient NPO since Midnight. 13:38:19 Patient allergic to Other allergylevaquin 13:38:22 Vital chart was started 13:38:25 Rhythm: sinus rhythm 13:38:29 Is the patient allergic to Iodine/contrast media? No. 13:38:31 Is patient on blood thinner?No 13:38:33 Patient diabetic? No. 13:38:39 Previous problem with sedation/anesthesia? No ? 13:38:41 Snore? No 13:38:42 Sleep apnea? No 13:38:43 Deviated septum? No 13:38:44 Opens mouth fully? Yes 13:38:45 Sticks out tongue? Yes 13:38:47 Airway obstruction? No ? 13:38:48 Dentures? No ? 13:38:53 Pre procedure: right dorsailis pedis pulse 2+ Normal; easily identifiable; not easily obliterated 13:38:55 Patient pain scale 0/10 ?. 13:39:02 IV patent on arrival in left forearm with 0.9% NaCl at [facility]. 13:39:06 Lab results completed and on chart. 13:39:08 Right groin area was prepped with chlora-prep and draped in sterile fashion 13:39:10 Alarms reviewed by R. N. 13:39:10 Sharps counted by scrub and verified by R.N. 13:39:14 Use device set Femoral Dx 13:39:15 ACIST Syringe (68195) opened to sterile field. 13:39:15 Bag Decanter (2002S) opened to sterile field. 13:39:15 Medline Cath Pack ([id number]) opened to sterile field. 13:39:16 DIAGNOSTIC WIRE .035 260cm J wire (391391) opened to sterile field. 13:39:17 ACIST Hand Control (82077) opened to sterile field. 13:39:18 ACIST Manifold (57336) opened to sterile field. 13:39:18 DIAGNOSTIC Multipack 5Fr catheter set ([id number]) opened to sterile field. 13:39:19 SHEATH 5FR [place] (AHR806) opened to sterile field. 13:39:21 Tegaderm 4 x 4 (1626W) opened to sterile field. 13:40:40 Oxygen 2 l/min etCO2 Nasal cannula was administered by Tra Dan RN; Per physician; 13:40:49 Heparin Flush Bag (1000units/500ml NS) 2 bags added to field was administered by Tra Dan RN; used for procedure; 13:40:57 0.9% NaCl 100 ml/hr I.V. was administered by Tra Dan RN; Per physician; 13:41:11 Lidocaine 2% 20ml vial added to field was administered by Tra Dan RN; used for procedure; 13:42:14 Baseline sample Acquired. 14:14:10 Zero performed for pressure channel P1 14:29:59 Final Timeout: patient, procedure, and site verified with staff and physician. All members of the team are in agreement. 14:30:02 Right groin site verified by team. 14:30:06 Fire Safety Assessment: A--An alcohol-based skin anteseptic being used preoperatively., C--Open oxygen or nitrous oxide is being used., D--An ESU, laser, or fiber-optic light is being used. 14:30:10 Physical assessment completed. ASA score P 2 - A patient with mild systemic disease as per Yash Gagnon MD. 14:30:14 Sedation plan: IV Moderate Sedation Medication:Versed, Fentanyl 14:30:15 Fentanyl 50 mcg I.V. was administered by Tra Dan RN; for sedation; 14:30:25 Versed 1 mg I.V. was administered by Tra Dan RN; for sedation; 14:33:12 Procedure started. 14:33:16 Local anesthetic to right femoral artery with Lidocaine 2% by Yash Gagnon MD.INITIAL ACCESS ONLY 14:34:41 A 5 Fr sheath was inserted into the Right Femoral artery 14:35:07 A MULTIPACK JL 4.0 5Fr catheter was advanced over the wire and used for Left Coronary Angiography. 14:35:25 Fentanyl 50 mcg I.V. was administered by Tra Dan RN; for sedation; 14:35:28 Versed 1 mg I.V. was administered by Tra Dan RN; for sedation; 14:37:18 Catheter removed. 14:37:32 Fentanyl 50 mcg I.V. was administered by Tra Dan RN; for sedation; 14:37:37 Versed 1 mg I.V. was administered by Tra Dan RN; for sedation; 14:37:53 A MULTIPACK 3DRC 5Fr catheter was advanced over the wire and used for Right Coronary Angiography. 14:39:55 Catheter removed. 14:40:06 A MULTIPACK Pigtail 5 Fr catheter was advanced over the wire and used for LV Angiography. 14:40:12 Fentanyl 50 mcg I.V. was administered by Tra Dan RN; for sedation; 14:41:37 LV gram done using SANCHEZ 14:41:39 LV hemodynamics recorded. 14:41:43 Injector settings: Ml/sec: 7, Volume: 15, 14:41:49 EF : 25 % 14:42:08 Fentanyl 50 mcg I.V. was administered by Tra Dan RN; for sedation; 14:42:08 A MULTIPACK Pigtail 5 Fr catheter was advanced over the wire and used for Aortic Root Angiography. 14:42:13 Injector settings: Ml/sec: 10, Volume: 30, 14:42:38 Catheter removed. 14:43:16 A DIAGNOSTIC AR MOD 5Fr Catheter ([id number]) was advanced over the wire and used for SVG Angiography. TO RCA 14:45:14 Catheter removed. 14:46:33 A DIAGNOSTIC MPA-2 5Fr catheter ([id number]) was advanced over the wire and used for Procedure. 14:47:56 SVG to RCA angiography performed. 14:47:58 Catheter removed. 14:48:18 SHEATH 6FR [place] (QCM079) opened to sterile field. 14:48:18 WHISPER 300cm guide wire ([id number]) opened to sterile field. 14:48:19 INFLATOR Merit BasixCompak (UZ6236) opened to sterile field. 14:48:36 Sheath upsized to a 6 Fr Short. 14:49:03 Versed 1 mg I.V. was administered by Tra Dan RN; for sedation; 14:50:58 GUIDE 6FR XBLAD 3.5 catheter ([id number]) opened to sterile field. 14:51:06 6 Fr XBLAD 3.5 guide catheter was inserted over the wire 14:53:02 Versed 1 mg I.V. was administered by Tra Dan RN; for sedation; 14:53:03 WHISPER 300 wire advanced. 14:53:15 Heparin Bolus 5000 units I.V. was administered by rTa Dan RN; for anticoagulation; 14:53:24 Integrilin (Bolus 2mg/ml) 9 ml I.V. was administered by Tra Dan RN; for antiplatelet therapy; 14:53:30 Integrilin (Bolus 2mg/ml) 1 ml wasted was administered by Tra Dan RN; for antiplatelet therapy; 14:54:09 Wire advanced across lesion. 14:54:52 Fentanyl 50 mcg I.V. was administered by Tra Dan RN; for sedation; 14:54:57 Versed 1 mg I.V. was administered by Tra Dan RN; for sedation; 14:56:13 Inflate balloon Inflation number: 1 A EMERGE OTW 2.5 x 12 balloon ([id number]) was prepped and advanced across the Mid CX, then inflated to 8 TANK for 0:20 (min:sec). 14:56:39 Inflation number: 2 The EMERGE OTW 2.5 x 12 balloon ([id number]) was reinflated across the Mid CX, to 12 TANK for 0:15 (min:sec). 14:57:05 Inflation number: 3 The EMERGE OTW 2.5 x 12 balloon ([id number]) was reinflated across the Mid CX, to 12 TANK for 0:10 (min:sec). 14:57:39 Balloon removed over the wire. 15:01:39 Place stent Inflation Number: 4 A INTEGRITY OTW 3.0 X 15 stent ([id number]) was prepped and advanced across the Mid CX. The stent was deployed at 16 TANK for 0:15 (min:sec). 15:04:13 Stent catheter was removed intact over wire. 15:05:21 Wire removed. 15:05:22 Guide catheter removed. 15:05:50 A MULTIPACK JL 4.0 5Fr catheter was advanced over the wire and used for Procedure. 15:08:35 LCA angiography performed. 15:08:36 Catheter removed. 15:10:04 A MULTIPACK Pigtail 5 Fr catheter was advanced over the wire and used for Procedure. 15:10:23 Aortic Root visualized 15:11:17 Catheter removed. 15:11:44 EXOSEAL 6Fr (EX600) opened to sterile field. 15:11:55 Sheath removed intact; hemostasis achieved with Exoseal to the Right Femoral artery. 15:12:36 Procedure ended.(Physican Out) 15:12:54 Fluoroscopy time 12.30 minutes. 15:13:01 Flurop Dose total: 1889 15:13:01 Fluoroscopy dose: 1889 mGy 15:13:04 Contrast amount:Isovue 300 312ml. 15:13:05 Sharps counted by scrub and verified by R.N. 15:13:12 Post-op/insertion site Right Femoral artery dressed using a 4 x 4 and Tegaderm. 15:13:14 Post-procedure physical assessment completed. ASA score P 2 - A patient with mild systemic disease as per Yash Gagnon MD. 15:15:37 Post procedure rhythm: sinus rhythm 15:15:39 Estimated blood loss: 10 ml 15:15:40 Post procedure instruction explained to patient.Patient verbalizes understanding. 15:15:41 Patient needs reinforcement of post procedure teaching. 15:16:22 Procedure type changed to Cath procedure, Diagnostic procedure, LHC, LHC w/Coronaries w/Grafts, Aortic Root Angiography, Sedation Charges, Moderate Sedation up to 30 minutes, PCI procedure, Coronary Stent, Coronary Stent Initial 15:16:40 Plavix 600 mg P.O. was administered by Tra Dan RN; for antiplatelet therapy; 15:17:59 Procedure and supply charges have been captured, reviewed, submitted and are correct. 15:18:01 Procedure Complication : No complications 15:18:04 Vital chart was stopped 15:18:04 See physician's report for complete and final results. 15:18:08 Report given to PCU. 15:18:12 Patient transfered to PCU with Bed. 15:18:16 Procedure ended. 15:18:16 Full Disclosure recording stopped 15:18:20 End room use (Document Last) Intervention Summary Intervention Notes Time ActionType Lesion and Equipment Action# Pressure Duration Attributes Used 14:56:13 Inflate Mid CX EMERGE OTW 1 8 00:20 balloon 2.5 x 12 balloon ([id number]) 14:56:39 Reinflate Mid CX EMERGE OTW 2 12 00:15 balloon 2.5 x 12 balloon ([id number]) 14:57:05 Reinflate Mid CX EMERGE OTW 3 12 00:10 balloon 2.5 x 12 balloon ([id number]) 15:01:39 Place stent Mid CX INTEGRITY 4 16 00:15 OTW 3.0 X 15 stent ([id number]) Device Usage Item Name Manufacture Quantity Catalog Number Hospital Part Current Min imal Lot# / Charge Number Stock Stock Serial# Code ACIST Acist 1 20679 694976 512650 786467 20 Syringe Medical (91391) Systems Inc Bag Decanter Microtek 1 725901 57268 816727 5 () Medical Inc. Medline Cath Medline 1 [id number] 802819 82741 823706 5 Pack ([id number]) DIAGNOSTIC St Mario 1 304797 500442 985430 523824 30 WIRE .035 260cm J wire (042661) ACIST Hand Acist 1 98777 324258 568849 547941 5 Control Medical (37953) Systems Inc ACIST Acist 1 35116 910946 426963 589431 5 Manifold Medical (01933) Systems Inc DIAGNOSTIC Cardinal 1 QY1595 176903 41744 266791 30 Multipack Health 5Fr catheter set (WK8111) SHEATH 5FR Terumo 1 TYC943 852316 641325 276016 5 [place] (FUC671) Tegaderm 4 x 3M 1 1626W 124650 230069 855370 5 4 (1626W) MULTIPACK JL Cardinal 1 143487 5 4.0 5Fr Health catheter MULTIPACK Cardinal 1 497427 5 3DRC 5Fr Health catheter MULTIPACK Cardinal 1 356639 5 Pigtail 5 Fr Health catheter DIAGNOSTIC Cardinal 1 [id number] 182424 997236 322616 15 AR MOD 5Fr Health Catheter (352917M) DIAGNOSTIC Cardinal 1 964668A 870798 118150 484010 5 MPA-2 5Fr Health catheter (563751O) SHEATH 6FR Terumo 1 XKU047 529231 157938 387272 40 [place] (IOC571) WHISPER Delacruz 1 [id number] 373329 558777 171503 5 300cm guide Vascular wire (7638372SO) INFLATOR Merit 1 HN7056 343951 036072 762818 15 Advebs Medical BasixCompak (OX8256) GUIDE 6FR Cardinal 1 18374466 867257 559763 103330 10 XBLAD 3.5 Health catheter (27166206) EMERGE OTW [place] 1 [id number] 326180 228643 530277 5 [id number] 2.5 x 12 Scientific balloon ([id number]) INTEGRITY Medtronic 1 [id number] 152624 075725 743250 8 [id number] OTW 3.0 X 15 stent ([id number]) EXOSEAL 6Fr Cardinal 1 EX600 464143 702301 604892 10 (EX600) Health Signature Audit [place] Stage Time Signature Unsigned Intra-Procedure 09/14/2018 Sarah Duenas 3:20:42 PM RT(R) Signatures Monitor : Lexy Signature : Counts RT Date : Time : Monitor : Sarah Duenas Signature : RT Date : Time : [address] [place] [address]
[2018-09-13 21:19] LABS: BASOPHILS 0.2 % (0-2); HEMATOCRIT 47.3 % (42.0-54.0); HEMOGLOBIN 16.1 g/dL (13.5-17.5); IMMATURE GRANULOCYTES 0.2 % (0-5); LYMPHOCYTES 34.3 % (15-50); MEAN PLATELET VOLUME 9.4 fL (7.4-10.4); MONOCYTES 11.1 % (2-11); NEUTROPHILS 53.2 % (40-80); PLATELET COUNT 236 10x3/uL (130-400); WBC 11.8 10x3/uL (4.8-10.8)
[2018-09-13 21:30] LABS: APTT 29.9 SECONDS (22.8-39.4); INR 0.95 (0.85-1.17); PROTIME 12.2 SECONDS (11.6-15.0)
[2018-09-13 21:36] LABS: ALBUMIN 3.7 g/dL (3.4-5.0); ALKALINE PHOSPHATASE 100 U/L (46-116); ALT (SGPT) 27 U/L (10-68); BILIRUBIN - TOTAL 0.24 mg/dL (0.2-1.3); CALC OSMOLALITY 284 mosm/kg (275-300); CALCIUM 8.5 mg/dL (8.5-10.1); CHLORIDE - SERUM 106 mmol/L (98-107); CREATININE - SERUM 0.9 mg/dL (0.6-1.3); GLUCOSE 100 mg/dL (74-106); POTASSIUM - SERUM 4.4 mmol/L (3.5-5.1); PROTEIN - SERUM 7.1 g/dL (6.4-8.2); SODIUM 142 mmol/L (136-145); UREA NITROGEN 17 mg/dL (7-18); eGFR NON AFRICAN AMERICAN > 90 mL/min (90-120)
[2018-09-13 21:44] VITALS: BP 163/94
[2018-09-13 21:48] LABS: CKMB 1.9 U/L (0.0-3.6); CREATINE KINASE 54 UL (21-232); MAGNESIUM - SERUM 2.1 mg/dL (1.8-2.4); THYROID STIMULATING HORMONE 3.19 uIU/mL (0.36-3.74)
[2018-09-13 21:49] LABS: TROPONIN-I < 0.017 ng/mL (0.000-0.060)
[2018-09-13] MEDS ORDERED: COREG 3.1253.125 MG PO (23:32)
[2018-09-13] MEDS ORDERED: ULTRAM50 MG PO (23:33)
[2018-09-13] MEDS ORDERED: PRAVACHOL40 MG PO (23:34)
[2018-09-13] MEDS ORDERED: NEURONTIN600 MG PO (23:35)
[2018-09-13] MEDS ORDERED: NEURONTIN 300300 MG PO ×2 (23:35→23:36)
[2018-09-13] MEDS ORDERED: CELEXA10 MG PO (23:36)
--- NOTE | 2018-09-13 23:44 | NUR ---
PT ARRIVED VIA W/C FROM ER. NO DISTRESS NOTED. NO TELEMETRY AVAILABLE AT THIS TIME. SANDWICH AND A COLA GIVEN PER PT REQUEST. CALL LIGHT WITHIN REACH.
[2018-09-14 00:12] VITALS: BP 133/85; BMI 29.2
--- NOTE | 2018-09-14 00:47 | NUR ---
ADMISSION ASSESSMENT, HISTORY AND HOME MED LIST COMPLETED. PT STATES HE FEELS MUCH IMPROVED. IV TO L HAND SL. ALERT AND ORIENTED TO PERSON, PLACE AND TIME. LUNGS WITH SCATTERED WHEEZES BILAT. ALLAN. INSTRUCTED ON USING CALL LIGHT AND BED CONTROLS. SR UP X1, CALL LIGHT WITHIN REACH.
--- NOTE | 2018-09-14 02:19 | NUR ---
PT RESTING WITH EYES CLOSED. RESP EVEN AND REGULAR. SR UP X2, CALL LIGHT WITHIN REACH.
--- NOTE | 2018-09-14 04:09 | NUR ---
PT RESTING WITH EYES CLOSED. RESP EVEN AND REGULAR. SR UP X2, CALL LIGHT WITHIN REACH.
[2018-09-14 05:02] VITALS: BP 118/58
--- NOTE | 2018-09-14 06:15 | NUR ---
VSS. PT RESTED WELL SINCE ADMISSION. NEEDS MET; WILL CONTINUE TO MONITIOR.
[2018-09-14 06:25] LABS: BASOPHILS 0.2 % (0-2); EOSINOPHILS 1.1 % (0-7); HEMATOCRIT 46.4 % (42.0-54.0); HEMOGLOBIN 15.9 g/dL (13.5-17.5); IMMATURE GRANULOCYTES 0.3 % (0-5); LYMPHOCYTES 30.5 % (15-50); MCH 31.2 pg (26.0-34.0); MCHC 34.3 g/dL (31.0-37.0); MEAN PLATELET VOLUME 9.9 fL (7.4-10.4); MONOCYTES 10.5 % (2-11); NEUTROPHILS 57.4 % (40-80); PLATELET COUNT 234 10x3/uL (130-400); WBC 11.1 10x3/uL (4.8-10.8)
[2018-09-14 06:46] LABS: CALC OSMOLALITY 279 mosm/kg (275-300); CALCIUM 8.7 mg/dL (8.5-10.1); CARBON DIOXIDE 24.6 mmol/L (21.0-32.0); CHLORIDE - SERUM 105 mmol/L (98-107); CKMB 1.6 U/L (0.0-3.6); CREATINE KINASE 48 UL (21-232); CREATININE - SERUM 0.8 mg/dL (0.6-1.3); GLUCOSE 98 mg/dL (74-106); MAGNESIUM - SERUM 2.3 mg/dL (1.8-2.4); POTASSIUM - SERUM 3.9 mmol/L (3.5-5.1); SODIUM 140 mmol/L (136-145); TROPONIN-I < 0.017 ng/mL (0.000-0.060); UREA NITROGEN 16 mg/dL (7-18); eGFR NON AFRICAN AMERICAN > 90 mL/min (90-120)
[2018-09-14 07:03] VITALS: BP 137/88
--- NOTE | 2018-09-14 08:07 | NUR ---
ROUNDING DONE WITH PATIENT BEING NPO AT THIS TIME UNTIL SEEN PER DR ORTEGA. GLASSED ON. SITTING ON SIDE OF BED. LEFT HAND PIV SEEN WITH SALINE LOCK. ON ROOM AIR AT THIS TIME. STATES TO SLIGHT TINGLE OFF AND ON.
[2018-09-14 08:35] VITALS: Ht 185.4 cm; Wt 101.7 kg
--- NOTE | 2018-09-14 08:51 | NUR ---
HEART CATH PERMIT AND BLOOD PERMIT SIGNED AND WITNESSED. ASKED PATIENT TO CHANGE INTO GOWN AND REMOVE UNDERWEAR.
--- NOTE | 2018-09-14 10:50 | MORECARE ---
CASE MANAGEMENT DISCHARGE SUMMARY PATIENT: ISMAEL BRADFORD UNIT: [id number] ADM DATE: 09/13/18 AGE: 63 : 55 SEX: M ROOM/BED: D.2103 AUTHOR: MIRIAN CAMPBELL PHYSICIAN: REFERRING PHYSICIAN: VIJAY EAST MD DATE OF SERVICE: 09/14/18 Discharge Plan Patient Name: ISMAEL BRADFORD [facility] [facility] 1955 Planned Disposition: Anticipated Discharge Date: Discharge Date: Expected LOS: Initial Reviewer: [email or web address] Initial Review Date: 09/13/2018 Generated: 09/14/18 11:50 am Coverage Notice Reviewer: [email or web address] - Doreen Lizarraga Notice Issued Date-Time: 09/14/2018 10:10 Notice Type: Medicare Outpatient Observation Notice Notice Delivered To: Patient Relationship to Patient: Self Product Engineering Manager Name: Delivery Method: HAND - Hand Delivered Amanda Days: Prior Verbal Notification: Recipient Understood Notice: Yes Recipient Signature: Yes Med Rec Note Co-signed by Attending: Coverage Notice Comment: Patient Name: ISMAEL BRADFORD Page [phone] at 1050 All edits/amendments must be made on the electronic document DICTATION DATE: 09/14/18 1050 BAR ROLLER: RAD 09/14/18 1050 RPT#: [id number] DC DATE: STATUS: ADM IN [facility] [address] [place] [address] END OF REPORT
--- NOTE | 2018-09-14 12:25 | NUR ---
LAYING ON LEFT SIDE WITH EYES CLOSED. RESP ARE EVEN. APPEARS PAIN FREE AT THIS TIME. STILL NPO FOR HEART CATH.
--- NOTE | 2018-09-14 12:52 | NUR ---
INSTRUCTED PATIENT TO USE THE RESTROOM SO THAT PRE-OP MEDS CAN BE GIVEN, DONE.
[2018-09-14 12:53] VITALS: BP 133/79
--- NOTE | 2018-09-14 13:29 | NUR ---
TO ORDER FILLER VIA BED.
--- NOTE | 2018-09-14 15:45 | NUR ---
1530-RETURNS FROM METAL BALER RECOVERY WITH DRESSING C/D/I TO RIGHT GROIN. TO LAY FLAT X 4 HOURS. WILL MONITOR. PPP AND STRONG. RIGHT GROIN IS SOFT, NO HEMATOMA FELT.
--- NOTE | 2018-09-14 17:23 | NUR ---
STILL LAYING FLAT POST PROCEDURE. NO BLEEDING SEEN TO RIGHT GROIN, DRESSING C/D/I. PPP AND STRONG.
[2018-09-14 17:47] VITALS: BP 120/73
--- NOTE | 2018-09-14 19:19 | NUR ---
RESUMED CARE OF PT, LYING IN BED RESPIRAITONS EVEN AND UNLABORED ON ROOM AIR. LEFT HAND SALINE LOCKED. RIGHT GROIN C/D/I, PEDAL PULSE PALPABLE. PLACED ON TELEMETRY 85 SR WITH PVC. NO NEEDS VOICED AT THIS TIME. SEE NURSE ASSESSMENT.
[2018-09-14 21:03] VITALS: BP 105/53
[2018-09-15 01:03] VITALS: BP 105/51
--- NOTE | 2018-09-15 02:57 | NUR ---
LYING IN BED WITH EYES CLOSED, CALL LIGHT IN REACH. WILL CONTINUE WITH PLAN OF CARE.
--- NOTE | 2018-09-15 03:30 | NUR ---
68 TRIGEMINANY ON TELEMETRY
[2018-09-15 06:21] VITALS: BP 117/76
--- NOTE | 2018-09-15 07:29 | NUR ---
ROUNDING DONE WTIH NO COMPLAINTS AT PRESENT TIME. DAUGHTER IS AT BEDSIDE. RIGHT GROIN DRESSING IS C/D/I. ON HEART MONITOR SHOWING SR W OCC. PVC, HR 84. ON ROOM AIR. GLASSES AT BEDSIDE. AWAITING DOCTORS TO MAKE ROUNDS. 07-DR EAST IN TO SEE PATIENT AND MADE AWARE OF HEART RATE. STATES THAT HE WILL TELL DR LLANOS.
--- NOTE | 2018-09-15 08:19 | NUR ---
DR GARDNER IS ON FLOOR.
[2018-09-15 09:06] VITALS: BP 134/55
[2018-09-15 13:06] VITALS: BP 125/71
--- NOTE | 2018-09-15 13:25 | OP ---
PATIENT NAME: ISMAEL BRADFORD MEDICAL RECORD: [id number] :55 LOCATION:D.M2 D.2103 ADMISSION DATE:09/13/18 SURGEON: GENARO GARDNER MD DATE OF OPERATION: 09/14/2018 PROCEDURE: Left heart catheterization, selective coronary angiography, right femoral artery approach. CATHETERS: A 5-Martiniquais sheath, 5/4 left and right Brigette, 5/4 pig. The procedure was well tolerated. The patient was returned to park. Sheath was removed. ExoSeal device was placed. FINDINGS: Left ventriculography in 30-degree SANCHEZ view shows global hypokinesis. Overall reduced LVEF of 20% to 25%. CORONARY ANATOMY: LEFT MAIN: Left main fills for a short period of time. LAD: Totally occluded. It gives rise to one high OM/ramus branch, which has a distal stenosis of about 90% and more proximal stenosis of 90%. RIGHT CORONARY ARTERY: Totally occluded proximally. BYPASS GRAFTS: BLACK to LAD is widely patent throughout its course without evidence of post-anastomotic stenosis. Saphenous vein graft to right is widely patent throughout its course without post-anastomotic stenosis. PLAN: Intervention to ramus OM branch momentarily. DESCRIPTION OF PROCEDURE: A 5-Martiniquais sheath was exchanged for a 6-Martiniquais sheath. An EBU guiding catheter provided good guide catheter support. Initially, I placed a 300-cm Whisper wire across both 80% stenoses in the distal portion and the mid portion of vessel. Pre-deployment balloon was 2.5 x 12 balloon. The proximal lesion was addressed with a 3.0 x 15 mm Integrity nondrug-eluting secondary to concerns about compliance. Repeat cineography showed dissection probably at the ostia of the LAD; however, this was covered by the BLACK graft. KIRSTIE flow was decreased in mashpee circumflex to OM with successful stenting. At this point in time, Plavix was loaded in the lab. Additionally, we will add ARB in addition to the beta blockade for myopathic process. TRANSINT:[id number] Voice Confirmation ID: [id number] DOCUMENT ID: [id number] GENARO GARDNER MD at 1328 CC: [id number] DICTATION DATE: 09/14/18 1523 DOG WARDEN: 09/14/18 1815 ADM IN [facility] [address] [place] [address]
--- NOTE | 2018-09-15 16:07 | MORECARE ---
CASE MANAGEMENT DISCHARGE SUMMARY PATIENT: ISMAEL BRADFORD UNIT: [id number] ADM DATE: 09/13/18 AGE: 63 : 55 SEX: M ROOM/BED: D.2103 AUTHOR: MIRIAN CAMPBELL PHYSICIAN: REFERRING PHYSICIAN: VIJAY EAST MD DATE OF SERVICE: 09/15/18 Discharge Plan Patient Name: ISMAEL BRADFORD [facility] : 1955 Planned Disposition: Home Anticipated Discharge Date: 09/15/18 Discharge Date: Expected LOS: 2 Initial Reviewer: [email or web address] Initial Review Date: 09/13/2018 Generated: 09/15/18 5:07 pm Coverage Notice Reviewer: [email or web address] Jaky Lizarraga Notice Issued Date-Time: 09/14/2018 10:10 Notice Type: Medicare Outpatient Observation Notice Notice Delivered To: Patient Relationship to Patient: Self Covered Button Maker Name: Delivery Method: HAND - Hand Delivered Amanda Days: Prior Verbal Notification: Recipient Understood Notice: Yes Recipient Signature: Yes Med Rec Note Co-signed by Attending: Coverage Notice Comment: Last DP export: 09/14/18 9:50 a Patient Name: ISMAEL BRADFORD Page [id number] at 1607 All edits/amendments must be made on the electronic document DICTATION DATE: 09/15/181606 DOLL REPAIRER: RAD 09/15/18 160 RPT#: [id number] [place] DATE: STATUS: ADM IN [facility] [address] [place] [address] END OF REPORT
--- NOTE | 2018-09-15 16:25 | NUR ---
CALL INTO DR EAST FOR DISCHARGE.
--- NOTE | 2018-09-15 16:34 | NUR ---
I TALKED TO ISIDRO AND DR EAST AND IT WILL BE AFTER 6 PM BEFORE HE CAN WORK ON THE PAPERWORK. THIS IS RELAYED TO THE PATIENT.
[2018-09-15] MEDS ORDERED: ENTRESTO 24 MG1 EACH PO ×3 (17:41→18:05)
[2018-09-15] MEDS ORDERED: ASPIRIN325 MG PO (17:41)
--- NOTE | 2018-09-15 17:43 | HP ---
PATIENT: ISMAEL BRADFORD MEDICAL RECORD: [id number] ACCOUNT: [id number] LOCATION:[address] : 55 ADMISSION DATE: 09/13/18 PCP: VIJAY EAST MD HISTORY AND PHYSICAL EXAMINATION REASON FOR ADMISSION: Exertional shortness of breath and left arm tingling. HISTORY OF PRESENT ILLNESS: The patient is a 63-year-old male who at age 40 had a 3-vessel CABG by Dr. Vahe Santos. He had not had cardiac followup consistently since that time. He has continued to smoke. 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 Dr. Moy from cardiology saw him, at that time his echocardiogram showed an EF of 65%, mild aortic sclerosis, and left atrial enlargement. He was seen in my office a week ago complaining of 1-month history of exertional shortness of breath, no chest pain, but just feeling tired like he did when he had his bypass. An EKG showed right axis rare unifocal PVCs. He was placed on Coreg and scheduled to see Dr. Gallardo. An echocardiogram showed an EF of 25% to 30% and concern for an ischemic cardiomyopathy was entertained. He says he was lying on his couch last night, woke up and his left hand was tingling and numb in the C6-7 distribution. Then went up into his arm into his shoulder. He had no chest pain, but became anxious thinking it could be his heart and came to the Emergency Room. He has had previous ACF and odontoid fracture in the past and occasionally has some numbness, but this was different. Nonetheless, he was admitted for atypical arm and chest pain. PAST MEDICAL HISTORY: Long-term smoker, history of CAD post-CABG at age 40, essential hypertension, hyperlipidemia, chronic cervical and lumbar back pain with chronic pain syndrome, anxiety, depression, osteoarthritis, BPH. PAST SURGICAL HISTORY: He has had 3-vessel CABG, lumbar spinal fusion for odontoid fracture handled nonoperatively, lumbar stenosis post TLIF L3-5 in May of 2016, posterior nonsegmental instrumentation of the lumbar spine in 2016, rotator cuff repair, cervical ACF. ALLERGIES: QUESTIONABLY TO LEVAQUIN. FAMILY HISTORY: Both parents are , both had CAD. Father also had lung cancer and stroke. Mother had lung cancer, hepatitis. Has a sister living, who had seizures and he cares for her. SOCIAL HISTORY: Socially, he smoked 2 packs a day for the last 40 years. Does not drink alcohol. 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 CURRENT MEDICATIONS: Coreg 3.125 mg b.i.d.; gabapentin, he takes 300 mg 1 in the morning, 1 at noon, and 2 in the evening; Celexa 10 mg daily; tramadol 50 mg 1-2 q.6 hours for breakthrough pain; pravastatin 40 mg at bedtime, diclofenac 50 mg b.i.d. p.c. REVIEW OF SYSTEMS: GENERAL: He has been fatigued for the last month. He has not had fever. HEENT: No recent visual change, sinus congestion, or sore throat. RESPIRATORY: He has exertional dyspnea for the last month. No cough or sputum production. CARDIAC: No exertional chest pain, but has exertional VITALE. Left arm tingling last evening, which concerned him. History of previous angina, but not HISTORY AND PHYSICAL [id number] ISMAEL BRADFORD. GASTROINTESTINAL: No nausea, vomiting, change in stools or blood per rectum. GENITOURINARY: Nocturia twice nightly. ENDOCRINE: Denies polyuria, polydipsia, heat or cold intolerance. NEUROLOGIC: No history of stroke, TIA, or vascular exam. INTEGUMENT: No rash or itching. PSYCHIATRIC: Admits to chronic depressed mood due to chronic pain. MUSCULOSKELETAL: Has chronic cervical and lumbar back pain. PHYSICAL EXAMINATION: VITAL SIGNS: Blood pressure 185/106, respirations of 20, pulse of 68, temperature of 97 Fahrenheit, and sat 98% on room air. HEENT: Normocephalic. Eyes are clear. NECK: Shows limited range of motion to flexion and hyperextension. His carotids are clear bilaterally. No JVD is appreciated. LUNGS: Distant breath sounds bilaterally without wheeze or rales. HEART: Regular rate with occasional ectopic beat. No murmurs appreciated. ABDOMEN: Soft, nontender. No organomegaly. GENITOURINARY: Deferred. EXTREMITIES: No CC&E. NEUROLOGICAL: Oriented to person, place, and time. Cranial nerves intact. Gait is normal. He has slight decreased medical laboratory technologist in the left hand versus the right. MUSCULOSKELETAL: He has limited cervical range of motion and lumbar range of motion. PSYCHIATRIC: He has depressed mood with anxious overlay. LABORATORY DATA: His white count of 11.8 thousand, H&H of 16 and 47.3 respectively, normal diff. Chemistry is unremarkable. Magnesium 2.1. Cardiac enzymes are negative times 2. INR is 0.95. DIAGNOSTIC DATA: Chest x-ray is pending. EKG shows right axis rare unifocal PVCs, left atrial enlargement, unchanged from prior EKG. ASSESSMENT: 1. Exertional dyspnea with probable ischemic cardiomyopathy. 2. Uncontrolled hypertension. 3. Atypical arm pain. 4. Hyperlipidemia. 5. Nicotine addiction. 6. Anxiety. 7. Chronic pain syndrome. 8. Cervical lumbar disc disease with chronic pain syndrome. 9. Prior CABG with poor cardiac followup. PLAN: The patient's EF has dropped from 65% in May of 2016, 25% to 30% currently on outpatient echo. We will have cardiology assess the patient. Further workup to follow. TRANSINT:[id number] Voice Confirmation ID: [id number] DOCUMENT ID: [id number] HISTORY AND PHYSICAL [id number] ISMAEL BRADFORD TIMOTHY MD at 1743 CC: [id number] DICTATION DATE: 09/14/18 0740 MOTEL MANAGER: 09/14/18 0903 ADM IN [place] [id number] [place] [id number]
[2018-09-15] MEDS ORDERED: PLAVIX75 MG PO ×2 (18:04→18:06)
--- NOTE | 2018-09-15 18:22 | NUR ---
WRITTEN SCRIPTS FOR PLAVIX 75 MG #30 AND ENESTRO GIVEN TO PATIENT.
[2018-09-15 19:11] VITALS: BP 125/83
--- NOTE | 2018-09-15 19:15 | NUR ---
SALINE LOCK REMOVED WITH CATH TIP INTACT. VERBAL AND WRITTEN DISCHARGE INSTRUCTIONS GIVEN TO PATIENT. DISCHARGED HOME VIA WHEELCHAIR.
== END 2018-09-15 19:16 | disposition home or self-care (01) ==
LOC: D.ER 20:41 → OBSVTIME 22:28 → D.M2 22:28 → D.EDHOLD 22:28 → D.M2 22:45
PROVIDERS: Family Medicine; ADMIT Family Medicine
DX: I25.110 Atherosclerotic heart disease of native coronary artery with unstable angina pectoris (principal); I10 Essential (primary) hypertension; E78.5 Hyperlipidemia, unspecified; F17.200 Nicotine dependence, unspecified, uncomplicated; G89.4 Chronic pain syndrome; F41.9 Anxiety disorder, unspecified; M50.90 Cervical disc disorder, unspecified, unspecified cervical region; I42.9 Cardiomyopathy, unspecified; R00.8 Other abnormalities of heart beat

== ENCOUNTER → 2019-06-29 13:58 | Outpatient (CLI) | payer MEDICARE ==
[2018-09-14 08:35] VITALS: BMI 29.2
--- NOTE | ~2019-06-29 | EC ---
PATIENT:ISMAEL BRADFORD DATE OF SERVICE: 06/29/19 SEX: M MEDICAL RECORD: [id number] DATE OF : 55 LOCATION:[facility] AGE OF PATIENT: 64 ADMISSION DATE: 06/29/19 REFERRING PHYSICIAN: INTERPRETING PHYSICIAN: GENARO GARDNER MD ECHOCARDIOGRAM REPORT ECHO CHARGES 4 ECHO COMPLETE Date: 06/29/19 CLINICAL DIAGNOSIS: HTN HX OF CARDIOMYOPATHY,CAD ASSESS EF HX CABG/STENTS ECHOCARDIOGRAPHIC MEASUREMENTS (adult normal given) AC root (d.<3.7cm) 3.6 cm LV Septum d (<1.2 cm> 1.3 cm Valve Excursion 1.4 cm LV Septum (systole) 1.5 cm Left Atria (s.<4.0cm> 5.2 cm LVPW d(<1.2cm) 1.3 cm RV (d.<2.3cm) 4.7 cm LVPW (sytole) 1.7 cm LV diastole(<5.6CM) 6.9 cm MV E-F(>70mm/sec) cm LV systole 5.8 cm LVOT Diameter 2.1 cm MV exc.(>10mm) 1.2 cm Est.ejection fraction (50-75%) % DOPPLER: LVIT cm/sec A 90.0 cm/sec E cm/sec LA cm/sec RVSP 21 mmHg LVOT 77 cm/sec AOP1/2T m/s Asc. Ao 104 cm/sec RVOT 53 cm/sec RA cm/sec PA 63 cm/sec AV Gradient Peak 4.33 mmHg AV Mean 2.45 mmHg AV Area 2.2 cm MV Gradient Peak 6.49 mmHg MV Mean 2.37 mmHg MV Area cm COMMENTS: Strip Deburrer: 2 NICHOLE LENZ Butt Maker: 3 Dr. Cohen TAPE# PACS Pericardial Effusion N DATE OF SERVICE: Adequate 2-D echo, Color-Flow, Spectral Doppler, M-mode Borderline LVH. LV internal dimensions are normal. LV is globally hypokinetic with reduced EF, estimated EF 30% to 35%. Aortic valve is tricuspid. No evidence of stenosis with Doppler interrogation. Left atrium is dilated at 5.2 cm. Mitral valve shows no prolapse. Mild MR. Right-chambers are grossly normal. Trace TR. ECHOCARDIOGRAM REPORT [id number] ISMAEL BRADFORD TRANSINT:[id number] Voice Confirmation ID: [id number] DOCUMENT ID: [id number] GENARO GARDNER MD CC: [id number] DICTATION DATE: 06/30/19 140 CLINICAL ACADEMIC ALLERGIST: 06/30/19 183 DEP CLI 06/29/19 [place] [id number]
[~2019-06-29 13:58] MED LIST changes: +ASPIRIN325 MG PO; +CELEXA10 MG PO; +COREG 3.1253.125 MG PO; +ENTRESTO 24 MG1 EACH PO; +NEURONTIN 300300 MG PO; +NEURONTIN600 MG PO; +PLAVIX75 MG PO; +PRAVACHOL40 MG PO; +ULTRAM50 MG PO
== END | disposition home or self-care (01) ==
LOC: D.HCCECHO 13:58 → D.HCCARDIO 14:30
PROVIDERS: ATTEND Internal Medicine Interventional Cardiology
DX: I10 Essential (primary) hypertension (principal)

== ENCOUNTER 2019-07-31 20:33 | Emergency (ER) | payer MEDICARE ==
[~2019-07-31] VITALS: Ht 185.4 cm; Wt 104.5 kg
[2019-07-31 20:34] VITALS: Ht 185.4 cm; Wt 104.5 kg
[2019-07-31] MEDS ORDERED: PREDNISONE20 MG PO (23:23)
[2019-07-31 23:50] VITALS: BP 128/75
== END 2019-08-01 00:20 | disposition home or self-care (01) ==
LOC: D.ER 20:33
DX: G89.29 Other chronic pain (principal); M54.5 Low back pain; I25.10 Atherosclerotic heart disease of native coronary artery without angina pectoris; G62.9 Polyneuropathy, unspecified; Z95.1 Presence of aortocoronary bypass graft; R00.0 Tachycardia, unspecified; Z72.0 Tobacco use

== ENCOUNTER 2019-08-18 11:14 | Outpatient (CLI) | payer MEDICARE ==
[~2019-08-18] VITALS: Ht 185.4 cm; Wt 101.4 kg
--- NOTE | ~2019-08-18 | HEMODYNAMI ---
PATIENT:ISMAEL BRADFORD MEDICAL RECORD: [id number] : 55 LOCATION:DAliceCAT ADMISSION DATE: 08/18/19 Generatedon:08/18/201913:18 Patient name: ISMAEL BRADFORD Patient #: [id number] SSN: DO B: 1955 Date of study: 08/18/2019 Page: Of Hemodynamic Procedure Report Patient Data Patient Demographics Procedure consent was obtained First Name: ISMAEL Gender: Male Last Name: SUZETTE : 1955 [facility] Initial: L Age: 64 year(s) Patient #: [id number] Race: Unknown Additional ID: [id number] Contact details Address: [address] [place] [address] [facility] State: [place] City: [place] Zip code: [address] Past Medical History Allergies Allergen Reaction Date Comments Reported Other allergy 09/14/2018 [facility] Admission Admission Data Admission Date: 08/18/2019 Admission Time: 11:14 Arrival Date: 08/18/2019 Arrival Time: 0:00 Admit Source: Other Insurance Payor: Private health insurance Height (in.): 72 BSA: 2.29 (m2) Height (cm.): 182.88 BMI: 32.01 (kg/m2) Weight (lbs.): 236 Weight (kg.): 107.05 Procedure Procedure Types Cath Procedure Diagnostic Procedure Cardioversion External SUNDAR Procedure Description Procedure Date Procedure Date: 08/18/2019 Procedure Start Time: 13:04 Procedure End Time: 13:11 Procedure Staff Name Function Yash Gagnon MD Performing Physician Marielena Butcher RT Monitor Nenita Mauricio RN Nurse Simon Marr CRNA Additional personnel Travis Loza Park Worker Supervisor Procedure Data Cath Procedure Fluoroscopy Diagnostic fluoroscopy Total fluoroscopy Time: 0 time: 0 min min Diagnostic fluoroscopy Total fluoroscopy dose: 0 dose: 0 mGy mGy Contrast Material Contrast Material Type Amount (ml) Isovue 300 0 Estimated blood loss: 5 ml Procedure Complications No complications Procedure Medications Medication Administration Route Dosage 0.9% NaCl I.V. 100 ml/hr Oxygen etCO2 Nasal cannula 2 l/min Refer to Anesthesia Notes for Sedation Medications Hemodynamics Rest BSA: 2.29 (m2) O2 Consumption: Estimated: 313.72 (ml/min) O2 Consumption indexed : Estimated:137 (ml/min/m) Heart Rate: 123 (bpm) Snapshots Pre Cath Intra NCS Post Cath Vital Signs Time Heart Resp SPO2 etCO2 NIBP Rhythm Pain Sedation Rate (ipm) (%) (mmHg) (mmHg) Status Level (bpm) 12:55:51 121 17 93 32 111/77(88) A-Flutter 0 (11) 10(A) , No pain 12:59:55 121 19 94 25.6 106/73(82) A-Flutter 0 (11) 10(A) , No pain 13:04:04 117 21 92 31.6 67/42(56) A-Flutter 0 (11) 5(A) , No pain 13:08:02 114 22 93 14 72/51(59) A-Flutter 0 (11) 5(A) , No pain 13:10:29 79 19 94 17.3 86/58(73) NSR 0 (11) 5(A) , No pain 13:17:23 78 18 96 0 86/50(64) NSR 0 (11) 10(A) , No pain Medications Time Medication Route Dose Verified Delivered Reason Notes Effective ness by by 12:54:58 0.9% NaCl I.V. 100 Yash Gutierres used for ml/hr St Balwinder Mauricio procedure MD CASTILLO 12:55:05 Oxygen etCO2 2 Yash Gutierres used for Nasal l/min St Balwinder Mauricio procedure cannula MD [place]ST[place]O 12:55:11 Refer to Yash Berrios for Anesthesia [facility] sedation Notes for MD NAM Sedation Medications Procedure Log Time Note 12:41:25 Arrival Date: 08/18/2019 12:00:00 AM 12:41:26 Admit Source: Other 12:41:47 Insurance Payor : Private health insurance 12:42:07 Patient Height : 72 inches 12:42:10 Patient Weight : 236 lbs 12:44:50 Vital chart was started 12:54:23 Diagnostic Cath Status : Elective 12:54:49 Nenita Mauricio RN sent for patient. Start room use. 12:54:58 0.9% NaCl 100 ml/hr I.V. was administered by Nenita Mauricio RN; used for procedure; Verbal order read back and verified. 12:54:58 Time tracking: Regular hours (M-F 7:00 - 5:00) 12:55:05 Oxygen 2 l/min etCO2 Nasal cannula was administered by Nenita Mauricio RN; used for procedure; Verbal order read back and verified. 12:55:11 Refer to Anesthesia Notes for Sedation Medications was administered by Yash Gagnon MD; for sedation; Verbal order read back and verified. 12:55:20 Plan of Care:Hemodynamics will remain stable., Cardiac rhythm will remain stable., Comfort level will be maintained., Respiratory function will remain adequate., Patient/ family verbilizes understanding of procedure., Procedure tolerated without complication., Recovers from procedure without complications.. 12:55:50 Patient received from Pre/Post Procedure Room to CCL 2 Alert and oriented. Tansferred to table in Supine position. 12:55:58 Signed procedure consent form obtained from patient. 12:56:04 Warm blankets applied, and bekah hugger turned on for patient comfort. 12:56:05 Correct patient and procedure confirmed by team. 12:56:05 ECG and BP/O2 sat monitors applied to patient. 12:56:07 Baseline sample Acquired. 12:56:14 Rhythm: atrial fibrillation 12:56:16 Full Disclosure recording started 12:56:23 H&P Date Dictated: 08/18/2019 Within 30 days and on chart., H&P Addendum completed by physician on day of procedure. (MUST COMPLETE FOR ALL OUTPATIENTS). 12:56:25 Pre-procedure instructions explained to patient. 12:56:25 Pre-op teaching completed and patient verbalized understanding. 12:56:27 Family in waiting room. 12:56:29 Patient NPO since Midnight. 12:56:32 Is the patient allergic to Iodine/contrast media? No. 12:56:33 Was the patient premedicated? No 12:56:34 Is patient on blood thinner?Yes 12:56:38 ACC The patient was administered the following blood thiners within the last 24 hours: Eliquis 12:56:41 Patient diabetic? No. 12:56:50 If diabetic: On Metformin? No 12:56:57 Previous problem with sedation/anesthesia? No ? 12:57:01 Snore? Yes 12:57:01 Sleep apnea? Yes 12:57:16 Deviated septum? No 12:57:17 Opens mouth fully? Yes 12:57:18 Sticks out tongue? Yes 12:57:39 Airway obstruction? No ? 12:57:57 Dentures? No ? 12:58:07 Pre procedure: right dorsailis pedis pulse 1+ Palpable, but thready & weak; easily obliterated 12:58:10 Pre procedure: left dorsailis pedis pulse 1+ Palpable, but thready & weak; easily obliterated 12:58:33 IV patent on arrival in right forearm with 0.9% NaCl at KVO. 12:58:35 Lab results completed and on chart. 12:58:42 Alarms reviewed by R. N. 12:58:43 Sharps counted by scrub and verified by R.N. 12:58:45 Physician arrived 12:58:46 --------ALL STOP TIME OUT------ 12:58:46 Final Timeout: patient, procedure, and site verified with staff and physician. All members of the team are in agreement. 12:58:57 Fire Safety Assessment: A--An alcohol-based skin anteseptic being used preoperatively., C--Open oxygen or nitrous oxide is being used., D--An ESU, laser, or fiber-optic light is being used. 12:59:15 Physical assessment completed. ASA score P 2 - A patient with mild systemic disease as per Yash Gagnon MD. 12:59:27 Sedation plan: TIVA Medication:Propofol 12:59:36 Simon Marr CRNA present and monitoring patient for TIVA. 13:00:01 Quick combo pads placed on patients chest and back. 13:04:06 Travis Loza Publishing Systems Analyst present for SUNDAR. 13:04:07 SUNDAR started. 13:04:09 Procedure started. 13:08:16 SUNDAR completed. 13:08:35 Defibrillator synced and charged to 200 Joules. 13:08:36 Shock delivered. 13:08:50 Patient cardioverted to sinus rhythm . 13:09:00 Procedure ended.(Physican Out) 13:09:08 Fluoroscopy time 00.00 minutes. 13:09:10 Fluoroscopy dose: 0 mGy 13:09:10 Flurop Dose total: 0 13:09:17 Dose Area Product 0 mGy/cm. 13:09:45 Contrast amount:Isovue 300 0ml. 13:09:49 Maximum allowable dose exceeded? No. 13:09:50 Sharps counted by scrub and verified by R.N. 13:09:51 Insertion/operative site no bleeding no hematoma. 13:10:05 Post procedure rhythm: sinus rhythm 13:10:07 Estimated blood loss: 5 ml 13:10:25 Post procedure instruction explained to patient.Patient verbalizes understanding. 13:10:26 Patient needs reinforcement of post procedure teaching. 13:10:57 Procedure and supply charges have been captured, reviewed, submitted and are correct. 13:11:01 Procedure Complication : No complications 13:11:04 Vital chart was stopped 13:11:35 SUNDAR Findings: SUNDAR w/ cardioversion: no left atrial clot noted (proceed with cardioversion) 13:11:37 Operative report dictated upon procedure completion. 13:11:38 See physician's report for complete and final results. 13:11:44 Report given to Pre/Post Procedure Room. 13:11:47 Procedure ended. 13:11:47 Full Disclosure recording stopped 13:11:53 End room use (Document Last) 13:12:11 End room use (Document Last) 13:12:59 End room use (Document Last) Signature Audit [place] Stage Time Signature Unsigned Intra-Procedure 08/18/2019 Marielena Butcher 1:12:11 PM RT(R) Intra-Procedure 08/18/2019 Nenita Mauricio 1:12:59 PM RN Intra-Procedure 08/18/2019 Yash Samayoa 1:18:44 PM Balwinder NAM Signatures Performing Physician : Signature : Yash Gagnon MD Date : Time : Monitor : Marielena Butcher RT Signature : Date : Time : Nurse : Nenita Mauricio RN Signature : Date : Time : [place] [id number] [place] [address]
[~2019-08-18 11:14] MED LIST changes: +PREDNISONE20 MG PO
[2019-08-18] MEDS ORDERED: ENTRESTO 49 MG1 EACH PO (12:02)
[2019-08-18] MEDS ORDERED: HYDROCODON-ACE1 EA10 PO (12:03)
[2019-08-18] MEDS ORDERED: MULTAQ400 MG PO (12:04)
[2019-08-18] MEDS ORDERED: ELIQUIS5 MG PO (12:05)
[2019-08-18 12:12] VITALS: BP 103/64; Ht 185.4 cm; Wt 101.4 kg
[2019-08-18 12:13] LABS: BASOPHILS 0.2 % (0-2); EOSINOPHILS 2.2 % (0-7); HEMATOCRIT 41.8 % (42.0-54.0); HEMOGLOBIN 14.1 g/dL (13.5-17.5); IMMATURE GRANULOCYTES 0.2 % (0-5); LYMPHOCYTES 29.5 % (15-50); MCH 30.6 pg (26.0-34.0); MCHC 33.7 g/dL (31.0-37.0); MCV 90.7 fL (80.0-100.0); MEAN PLATELET VOLUME 9.1 fL (7.4-10.4); MONOCYTES 9.5 % (2-11); NEUTROPHILS 58.4 % (40-80); PLATELET COUNT 213 10x3/uL (130-400); RBC 4.61 10x6/uL (4.20-6.10); RDW 14.8 % (11.5-14.5); WBC 9.1 10x3/uL (4.8-10.8)
[2019-08-18 12:25] LABS: INR 1.21 (0.85-1.17); PROTIME 15.3 SECONDS (11.6-15.0)
[2019-08-18 12:28] LABS: CALCIUM 8.6 mg/dL (8.5-10.1); CARBON DIOXIDE 25.5 mmol/L (21.0-32.0); CREATININE - SERUM 1.1 mg/dL (0.6-1.3); POTASSIUM - SERUM 4.5 mmol/L (3.5-5.1)
--- NOTE | 2019-08-18 13:20 | NUR ---
PT RECEIVED VIA STRETCHER FROM MILITARY NURSE POST SUNDAR AND CARDIOVERSION FOR RECOVERY. PT DROWSY BUT AWAKE, DENIES PAIN OR DISCOMFORT. NO DIFFICULITY SWALLOWING. IV PATENT INFUSING VIA L ARM PER ORDERS. PT PLACED ON CARDIAC MONITORS, HR 93, BP 90/57, RR 18, SAT 96 ON ROOM AIR. CALL LIGHT IN REACH
[2019-08-18] MEDS ORDERED: AMIODARONE HCL200 MG PO (13:34)
--- NOTE | 2019-08-18 13:45 | NUR ---
PT SITTING UP IN BED, DENIES PAIN OR DISCOMFORT. TOLERATING PO FOOD AND FLUIDS W/O NAUSEA OR DIFFICULITY SWALLOWING. VSS. CALL LIGHT IN REACH
--- NOTE | 2019-08-18 14:15 | NUR ---
DR GARDNER AT , DISCUSSED PROCEDURE RESULTS AND PLAN OF CARE. VSS. PT DENIES PAIN OR NEEDS AT THIS TIME
--- NOTE | 2019-08-18 14:25 | NUR ---
DISCHARGE INSTRUCTIONS REVIEWED W PT, HE VERBALIZED UNDERSTANDING. EXPLAINED THE MEDICATION CHANGES ON MED LIST. IV REMOVED W CATH INTACT, MONITORS REMOVED AND PT UP TO DRESS FOR DISCHARGE.
--- NOTE | 2019-08-18 14:35 | NUR ---
PT TO BR VIA WC, VOIDING W/O DIFFICULITY. PT THEN DISCHARGED VIA WC TO DAUGHTER WAITING IN PRIVATE VEHICLE. DAUGHTER INSTRUCTED ON MEDICATION CHANGES AND INSTRUCTIONS. PT HAD ALL BELONGINGS AND DISCHARGE PAPERWORK.
--- NOTE | 2019-08-19 14:13 | TEE ---
PATIENT:ISMAEL BRADFORD MEDICAL RECORD: [id number] LOCATION:D.CAT AGE OF PATIENT: 64 ADMISSION DATE: 08/18/19 SEX: M REFERRING PHYSICIAN: INTERPRETING PHYSICIAN: GENARO GARDNER MD TRANSESOPHAGEAL ECHOCARDIOGRAM Date: 08/18/19 SUNDAR CHARGE Y INDICATIONS: ATRIAL FLUTTER PREMEDICATIONS: PATIENT'S RESPONSE PROCEDURE DOPPLER MEASUREMENTS: LVIT LA PA RA LVOT RVOT Asc. Ao AV Gradient Peak AV Mean AV Area MV Gradient Peak MV Mean MV Area INTERPRETATION: Doppler: 2-D: COLOR FLOW DOPPLER NORMAL SALINE STUDY: MISCELLANOUS: DIAGNOSIS: PLAN: Area Attendant:3 Dr. Cohen Extension Work Instructor: Eliceo LENZ COMMENTS: DATE OF SERVICE: 08/18/2019 PROCEDURE: Transesophageal note. DESCRIPTION OF PROCEDURE: After general sedation via TIVA via anesthesia, transesophageal Omniplane probe was placed in distal esophagus and proximal stomach without difficulty. FINDINGS: No LVH. LV internal dimension is dilated. LV is globally TRANSESOPHAGEAL ECHOCARDIOGRAM REPORT [id number] ISMAEL BRADFORD hypokinetic with reduced EF, estimated EF 20% to 25%. Aortic valve is sclerotic; however, there is good valve excursion and trivial AI. Left atrium is well visualized, this is dilated. Left atrial appendage is well visualized without evidence of thrombus, good contractility via Doppler interrogation. Mitral valve appears normal. Only mild MR. Right-sided chambers were grossly normal. Mild TR. At the end of procedure, transesophageal Omniplane probe was turned posteriorly and this shows minimal atherosclerotic debris in the descending aorta. TRANSINT:[id number] Voice Confirmation ID: [id number] DOCUMENT ID: [id number] at 1413 CC: [id number] DICTATION DATE: 08/18/19 1319 ADMINISTRATOR PESTICIDE: 08/19/19 0857 DEP CLI 08/18/19 [place] [id number] [place] [id number]
--- NOTE | 2019-08-19 14:13 | OP ---
PATIENT NAME: ISMAEL BRADFORD MEDICAL RECORD: [id number] :55 LOCATION:D.CAT ADMISSION DATE: SURGEON: GENARO GARDNER MD DATE OF OPERATION: 08/18/2019 PROCEDURE: Cardioversion. DESCRIPTION OF PROCEDURE: After general sedation via anesthesia via TIVA, a single synchronized shock was successful in restoring atrial flutter 2:1 to normal sinus rhythm. IMPRESSION: Successful cardioversion on Ismael Bradford. COMPLICATIONS: None. DISPOSITION: To the floor, stable. TRANSINT:[id number] Voice Confirmation ID: [id number] DOCUMENT ID: [id number] GENARO GARDNER MD at 1413 CC: [id number] DICTATION DATE: 08/18/19 1319 OPTHALMIC TECH: 08/18/19 1512 [facility] CLI 08/18/19 [place] [id number] [place] [address]
== END 2019-08-18 14:35 | disposition home or self-care (01) ==
LOC: D.CATH 11:14
PROVIDERS: ATTEND Internal Medicine Interventional Cardiology
DX: I48.92 Unspecified atrial flutter (principal); I42.9 Cardiomyopathy, unspecified; I25.10 Atherosclerotic heart disease of native coronary artery without angina pectoris; R00.0 Tachycardia, unspecified; R06.09 Other forms of dyspnea

== ENCOUNTER 2019-11-29 08:14 | Outpatient (CLI) | payer MEDICARE ==
[~2019-11-29] VITALS: Ht 185.4 cm; Wt 103.2 kg
--- NOTE | ~2019-11-29 | HEMODYNAMI ---
PATIENT:ISMAEL BRADFORD MEDICAL RECORD: [id number] : 55 LOCATION:[facility] ADMISSION DATE: 11/29/19 Generatedon:11/29/20199:36 Patient name: ISMAEL BRADFORD Patient #: [id number] SSN: [id number] : 1955 Date of study: 11/29/2019 Page: Of Hemodynamic Procedure Report Patient Data Patient Demographics Procedure consent was obtained First Name: ISMAEL Gender: Male Last Name: SUZETTE : 1955 Middle Initial: L Age: 64 year(s) Patient #: [id number] Race: SSN: [id number] Additional ID: [id number] Contact details Address: [address] [place] [address] [facility] State: [facility] Zip code: [address] Past Medical History Allergies Allergen Reaction Date Comments Reported Other allergy 09/14/2018 levaquin Other allergy 11/29/2019 DA Admission Admission Data Admission Date: 11/29/2019 Admission Time: 8:14 Arrival Date: 11/29/2019 Arrival Time: 0:00 Height (in.): 72.83 BSA: 2.27 (m2) Height (cm.): 185 BMI: 30.09 (kg/m2) Weight (lbs.): 227.08 Weight (kg.): 103 Lab Results Lab Result Date: 11/29/2019 Lab Result Time: 0:00 Biochemistry Name Units Result Min Max BUN mg/dl 13 --(--*-)-- 7 18 Creatinine mg/dl 0.9 --(-*--)-- 0.6 1.3 CBC Name Units Result Min Max Hematocrit % 45.8 --(-*--)-- 42 54 Hemoglobin g/dl 15 --(-*--)-- 13.5 17.5 Procedure Procedure Types Cath Procedure Diagnostic Procedure Cardioversion External Procedure Description Procedure Date Procedure Date: 11/29/2019 Procedure Start Time: 9:26 Procedure End Time: 9:34 Procedure Staff Name Function Yash Gagnon MD Performing Physician Veronica Moody RT Monitor Nenita Mauricio RN Nurse Yue Mg RT Scrub Lai Vásquez CRNA Additional personnel Procedure Data Procedure Complications No complications Procedure Medications Medication Administration Route Dosage 0.9% NaCl I.V. 100 ml/hr Oxygen etCO2 Nasal cannula 2 l/min Refer to Anesthesia Notes for Sedation Medications Hemodynamics Rest BSA: 2.27 (m2) O2 Consumption: Estimated: 258.16 (ml/min) O2 Consumption indexed : Estimated:113.73 (ml/min/m) Heart Rate: 62 (bpm) Snapshots Pre Cath Intra NCS Post Cath Vital Signs Time Heart Resp SPO2 etCO2 NIBP Rhythm Pain Sedation Rate (ipm) (%) (mmHg) (mmHg) Status Level (bpm) 9:23:50 77 22 96 32.8 113/69(93) A-Flutter 0 (11) 10(A) , No pain 9:26:49 79 31 87 25.4 93/57(72) A-Flutter 0 (11) 10(A) , No pain 9:30:56 78 26 93 20.1 83/49(66) A-Flutter 0 (11) 10(A) , No pain 9:33:34 76 23 94 20.9 93/56(82) A-Flutter 0 (11) 10(A) , No pain Medications Time Medication Route Dose Verified Delivered Reason Notes Effectiven ess by by 9:18:31 0.9% NaCl I.V. 100 Yash Gutierres used for ml/hr St Balwinder Mauricio procedure RN 9:18:39 Oxygen etCO2 2 Yash Lazara used for Nasal l/min St Balwinder Mauricio procedure cannula RN 9:18:43 Refer to Yash Berrios for Anesthesia St Balwinder Gagnon sedation Notes for MD NAM Sedation Medications Procedure Log Time Note 9:07:32 Procedure Status Cardioversion. 9:07:35 Yue Mg RT(R) sent for patient. Start room use. 9:07:38 Time tracking: Regular hours (M-F 7:00 - 5:00) 9:07:47 Plan of Care:Hemodynamics will remain stable., Cardiac rhythm will remain stable., Comfort level will be maintained., Respiratory function will remain adequate., Patient/ family verbilizes understanding of procedure., Procedure tolerated without complication., Recovers from procedure without complications.. 9:07:57 Informed consent obtained and on chart 9:: Lab Result : Hemoglobin 15 g/dl 9:: Lab Result : Creatinine 0.9 mg/dl 9:: Lab Result : BUN 13 mg/dl 9:: Lab Result : Hematocrit 45.8 % 9:16:36 Arrival Date: 11/29/2019 12:00:00 AM 9:16:44 Patient Height : 72.83 inches 9:16:49 Patient Weight : 227.08 lbs 9:17:31 Patient allergic to Other allergyNKDA 9:17:55 Patient arrived from Pre/Post Procedure Room to [facility] 1. Patient remains on bed/stretcher for procedure. 9:18:31 0.9% NaCl 100 ml/hr I.V. was administered by Nenita Mauricio RN; used for procedure; Verbal order read back and verified. 9:18:39 Oxygen 2 l/min etCO2 Nasal cannula was administered by Nenita Mauricio RN; used for procedure; Verbal order read back and verified. 9:18:43 Refer to Anesthesia Notes for Sedation Medications was administered by Yash Gagnon MD; for sedation; Verbal order read back and verified. 9:18:45 Warm blankets applied, and bekah hugger turned on for patient comfort. 9:18:47 Correct patient and procedure confirmed by team. 9:18:48 ECG and BP/O2 sat monitors applied to patient. 9:20:33 Quick Combo opened to sterile field. 9:22:38 Lai Vásquez CRNA present and monitoring patient for TIVA. 9:22:48 Vital chart was started 9:23:41 Baseline sample Acquired. 9:23:49 Rhythm: atrial flutter 9:23:52 Full Disclosure recording started 9:23:53 9:24:03 H&P Date Dictated: 11/29/2019 H&P Addendum completed by physician on day of procedure. (MUST COMPLETE FOR ALL OUTPATIENTS), New H&P dictated by physician.. 9:24:06 Pre-procedure instructions explained to patient. 9:24:07 Pre-op teaching completed and patient verbalized understanding. 9:24:11 Family unavailable. 9:24:15 Patient NPO since Midnight. 9:24:25 Was the patient premedicated? Yes 9:24:39 Is patient on blood thinner?Yes 9:24:47 ACC The patient was administered the following blood thiners within the last 24 hours: Eliquis 9::52 ----Pre-sedation anethsthesia assessment.---- 9::56 Previous problem with sedation/anesthesia? No ? 9:24:59 Snore? No 9:25:04 Sleep apnea? No 9:25:08 Deviated septum? Unknown 9:25:11 Opens mouth fully? Yes 9:25:14 Sticks out tongue? Yes 9:25:22 Airway obstruction? Yes COPD 9:25:29 Dentures? No ? 9:25:43 IV patent on arrival in right antecubital with 0.9% NaCl at O. 9:25:48 Lab results completed and on chart. 9::54 Physician arrived 9::55 --------ALL STOP TIME OUT------ 9::55 Final Timeout: patient, procedure, and site verified with staff and physician. All members of the team are in agreement. 9::02 Fire Safety Assessment: A--An alcohol-based skin anteseptic being used preoperatively., C--Open oxygen or nitrous oxide is being used., D--An ESU, laser, or fiber-optic light is being used. 9:26:11 Sedation plan: TIVA Medication:Propofol 9:26:18 Procedure started. 9::19 ------Cardioversion------ 9::26 Quick combo pads placed on patients chest and back. 9::33 Defibrillator synced and charged to 200 Joules. 9:26:35 Shock delivered. 9::47 Patient cardioverted to sinus rhythm . 9:27:33 Procedure ended.(Physican Out) 9:29:02 Patient needs reinforcement of post procedure teaching. 9:29:16 Procedure and supply charges have been captured, reviewed, submitted and are correct. 9:29:40 Procedure Complication : No complications 9:34:31 Vital chart was stopped 9:34:33 Operative report dictated upon procedure completion. 9:34:45 See physician's report for complete and final results. 9:34:47 Report given to Pre/Post Procedure Room. 9:34:52 Patient transfered to Pre/Post Procedure Room with Stretcher. 9:34:55 Procedure ended. 9:34:55 Full Disclosure recording stopped 9:34:58 End room use (Document Last) 9:35:24 Veronica Moody RT(R) (CV) was relieved by Veronica Moody RT(R) (CV) as monitoring person 9:36:13 Veronica Huntnemann RT(R) (CV) was relieved by Nenita Mauricio RN as monitoring person Device Usage Item Manufacture Quantity Catalog Hospital Part Current Minimal Lot# / Name Number Charge Number Stock Stock Luba al# Code [email or web address] [id number] Combo Signature Audit Barton Stage Time Signature Unsigned Intra-Procedure 11/29/2019 Veronica 9:35:03 AM Nannemann RT(R) (CV) Intra-Procedure 11/29/2019 Veronica 9:35:35 AM Nannemann RT(R) (CV) Intra-Procedure 11/29/2019 Yash Samayoa 9:36:44 AM Balwinder NAM [facility] [address] [place] [address]
[~2019-11-29 08:14] MED LIST changes: +AMIODARONE HCL200 MG PO; +ELIQUIS5 MG PO; +ENTRESTO 49 MG1 EACH PO; +HYDROCODON-ACE1 EA10 PO; +MULTAQ400 MG PO
[2019-11-29 08:56] LABS: BASOPHILS 0.1 % (0-2); EOSINOPHILS 3.7 % (0-7); HEMATOCRIT 45.8 % (42.0-54.0); IMMATURE GRANULOCYTES 0.1 % (0-5); LYMPHOCYTES 37.6 % (15-50); MCH 30.1 pg (26.0-34.0); MCHC 32.8 g/dL (31.0-37.0); MCV 91.8 fL (80.0-100.0); MEAN PLATELET VOLUME 9.7 fL (7.4-10.4); MONOCYTES 10.7 % (2-11); NEUTROPHILS 47.8 % (40-80); RBC 4.99 10x6/uL (4.20-6.10); WBC 6.8 10x3/uL (4.8-10.8)
[2019-11-29 08:57] LABS: PLATELET COUNT 153 10x3/uL (130-400)
[2019-11-29 08:58] VITALS: BP 134/74; Ht 185.4 cm; Wt 103.2 kg
[2019-11-29] MEDS ORDERED: LANOXIN125 MCG PO (09:01)
[2019-11-29] MEDS ORDERED: ELIQUIS5 MG PO (09:01)
[2019-11-29 09:07] LABS: CALC OSMOLALITY 278 mosm/kg (275-300); CALCIUM 8.7 mg/dL (8.5-10.1); CARBON DIOXIDE 25.9 mmol/L (21.0-32.0); CHLORIDE - SERUM 107 mmol/L (98-107); CREATININE - SERUM 0.9 mg/dL (0.6-1.3); GLUCOSE 104 mg/dL (74-106); POTASSIUM - SERUM 4.3 mmol/L (3.5-5.1); SODIUM 140 mmol/L (136-145); UREA NITROGEN 13 mg/dL (7-18); eGFR NON AFRICAN AMERICAN 90 mL/min (90-120)
--- NOTE | 2019-11-29 09:35 | NUR ---
PT RECEIVED VIA STRETCHER BACK TO ROOM 6 FOR RECOVERY FROM SUCCESSFUL CARDIOVERSION. PT AWAKE AND ALERT, DENIES PAIN OR DISCOMFORT. PT PLACED ON CARDIAC MONITORS AND O2 VIA NC AT 2L. HR NSR RATE 77, BP 102/59, RR 18, SAT 96. IV PATENT INFUSING VIA ORDERS TO R ARM. CALL LIGHT IN REACH.
[2019-11-29 09:38] LABS: INR 2.02 (0.85-1.17); PROTIME 22.6 SECONDS (11.6-15.0)
--- NOTE | 2019-11-29 10:03 | NUR ---
PT DOING WELL, HR REMAINS IN NSR, RATE 79, BP 104/71. HOB ELEVATED, SANDWICH AND DRINK SERVED. PT DENIES PAIN OR DISCOMFORT. CALL LIGHT IN REACH. PT'S DAUGHTER CALLED AND INFORMED OF DISCHARGE TIME.
--- NOTE | 2019-11-29 10:21 | NUR ---
DISCHARGE INSTRUCTIONS REVIEWED W PT, HE VERBALIZED UNDERSTANDING. IV REMOVED W CATH INTACT, MONITORS AND O2 REMOVED. PT TOLERATED LUNCH W/O NAUSEA. PT UP TO DRESS FOR DISCHARGE.
--- NOTE | 2019-11-29 10:35 | NUR ---
PT DISCHARGED VIA WC TO DAUGHTER WAITING IN PRIVATE VEHICLE. PT HAD ALL BELONGINGS AND DISCHARGE PAPERWORK.
--- NOTE | 2019-12-01 08:16 | OP ---
PATIENT NAME: ISMAEL BRADFORD MEDICAL RECORD: [id number] :55 LOCATION:[facility] ADMISSION DATE: SURGEON: GENARO GARDNER MD DATE OF OPERATION: 11/29/2019 PROCEDURE: Cardioversion. DESCRIPTION OF PROCEDURE: After general sedation via TIVA via anesthesia, a single synchronized shock at 200 joules was successful in restoring atrial fibrillation to normal sinus rhythm. IMPRESSION: Successful cardioversion on Ismael Bradford. COMPLICATIONS: None. During the procedure, the patient was monitored continuously with pulse oximetry, blood pressure, and telemetry. TRANSINT:[id number] Voice Confirmation ID: [id number] DOCUMENT ID: [id number] GENARO GARDNER MD at 0816 CC: [id number] DICTATION DATE: 11/29/19927 SAP BI ARCHITECT: 11/29/19 1604 DEP CLI 11/29/19 [facility] [address] [place] [address]
== END 2019-11-29 10:35 | disposition home or self-care (01) ==
LOC: D.CATH 08:14
PROVIDERS: ATTEND Internal Medicine Interventional Cardiology
DX: I25.10 Atherosclerotic heart disease of native coronary artery without angina pectoris (principal); R53.83 Other fatigue; I42.9 Cardiomyopathy, unspecified; I48.92 Unspecified atrial flutter; E78.5 Hyperlipidemia, unspecified; I11.9 Hypertensive heart disease without heart failure; I43 Cardiomyopathy in diseases classified elsewhere

== ENCOUNTER → 2020-03-09 10:55 | Outpatient (CLI) | payer MEDICARE ==
--- NOTE | ~2020-03-09 | EC ---
PATIENT:ISMAEL BRADFORD DATE OF SERVICE: 03/09/20 SEX: M MEDICAL RECORD: [id number] DATE OF : 55 LOCATION:[facility] AGE OF PATIENT: 64 ADMISSION DATE: 03/09/20 REFERRING PHYSICIAN: INTERPRETING PHYSICIAN: GENARO GARDNER MD ECHOCARDIOGRAM REPORT ECHO CHARGES 4 ECHO COMPLETE Date: 03/09/20 CLINICAL DIAGNOSIS: CAD/ASSESS EF AND MITRAL REGURG ECHOCARDIOGRAPHIC MEASUREMENTS (adult normal given) AC root (d.<3.7cm) 3.6 cm LV Septum d (<1.2 cm> 1.2 cm Valve Excursion 2.1 cm LV Septum (systole) 1.7 cm Left Atria (s.<4.0cm> 4.2 cm LVPW d(<1.2cm) 1.5 cm RV (d.<2.3cm) 3.7 cm LVPW (sytole) 1.6 cm LV diastole(<5.6CM) 6.2 cm MV E-F(>70mm/sec) cm LV systole 4.8 cm LVOT Diameter 1.9 cm MV exc.(>10mm) 1.6 cm Est.ejection fraction (50-75%) % DOPPLER: LVIT cm/sec A 115.0cm/sec E 97.0 cm/sec LA cm/sec RVSP 35 mmHg LVOT 87 cm/sec AOP1/2T 574 m/s Asc. Ao 139 cm/sec RVOT 65 cm/sec RA cm/sec PA 129 cm/sec AV Gradient Peak 7.68 mmHg AV Mean 3.55 mmHg AV Area 2.0 cm MV Gradient Peak 6.19 mmHg MV Mean 2.66 mmHg MV Area cm COMMENTS: Spent Grain Dryer: 2 NICHOLE LENZ Spearer: 3 Dr. Cohen TAPE# PACS Pericardial Effusion N DATE OF SERVICE: Adequate 2D, color flow imaging, spectral Doppler, and M-Mode. Borderline LVH. LV internal dimensions are normal. Wall motion is normal. EF is greater than or equal to 55%. Aortic valve is sclerotic. No evidence of stenosis by Doppler interrogation. Mild AI by color-flow imaging. Left atrium is mildly dilated at 4.2 cm. Mitral valve shows no prolapse. Trace MR. Right-sided chambers are grossly normal. Trace TR. ECHOCARDIOGRAM REPORT [id number] ISMAEL BRADFORD TRANSINT:[id number] Voice Confirmation ID: [id number] DOCUMENT ID: [id number] GENARO GARDNER MD CC: [id number] DICTATION DATE: 03/13/20 102 MANAGER STRATEGY: 03/13/202039 DEP CLI 03/09/20 [facility] [address] [place] [id number]
[~2020-03-09 10:55] MED LIST changes: +LANOXIN125 MCG PO
== END | disposition home or self-care (01) ==
LOC: D.HCCECHO 10:55
PROVIDERS: ATTEND Internal Medicine Interventional Cardiology
DX: I25.10 Atherosclerotic heart disease of native coronary artery without angina pectoris (principal)